=== PATIENT | male | born 1965 | race Hispanic/Latino ===

== ENCOUNTER 2017-02-25 12:50 | Emergency (ER) | payer MEDICARE, MEDICAID ==
[2017-02-25 13:16] LABS: #Basophils 0.1 thou/uL (0.0-0.2); #Lymphocytes 1.5 thou/uL (1.20-3.40); #Monocytes 0.6 thou/uL (0.11-0.59); %Basophils 1.1 % (0.0-1.0); %Eosinophils 0.3 % (0.0-10.0); %Monocytes 5.6 % (0.0-10.0); Hematocrit 49.7 % (42.0-52.0); Mean Platelet Volume 7.1 fL (7.4-10.4); Red Blood Cell (RBC) Count 4.98 mill/uL (4.70-6.10); White Blood Cell (WBC) Count 10.3 thou/uL (4.8-10.8)
[2017-02-25 13:30] LABS: Bilirubin Negative (Negative); Blood, Urine Negative (Negative); Glucose, Urine (Dipstick) Negative (Negative); Ketone, Urine Negative (Negative); Nitrite Negative (Negative); Protein, Urine (Dipstick) Negative (Neg-Trace); Urobilinogen 0.2 mg/dL (0.2-1.0)
[2017-02-25 13:46] LABS: ALT (SGPT) 13 U/L (8-55); AST (SGOT) 19 U/L (5-34); Alkaline Phosphatase 68 U/L (40-150); Anion Gap 12 mmol/L (10-20); BUN (Urea Nitrogen) 13 mg/dL (8.9-20.6); Bilirubin, Total 1.2 mg/dL (0.2-1.2); Calc. Creatinine Clearance 0 mL/min (70-130); Calcium 9.5 mg/dL (7.8-10.44); Carbon Dioxide 25 mmol/L (22-29); Chloride 101 mmol/L (98-107); Estimated GFR-MDRD Greater than 90; Globulin 2.7 g/dL (2.4-3.5); Lipase 19 U/L (8-78); Protein, Total 7.1 g/dL (6.0-8.3)
== END 2017-02-25 16:08 | disposition home or self-care (01) ==
LOC: ERS 12:50
DX: R53.83 Other fatigue (principal); K21.9 Gastro-esophageal reflux disease without esophagitis; N40.0 Benign prostatic hyperplasia without lower urinary tract symptoms; I10 Essential (primary) hypertension; E78.00 Pure hypercholesterolemia, unspecified; M19.90 Unspecified osteoarthritis, unspecified site; F17.210 Nicotine dependence, cigarettes, uncomplicated
CPT/HCPCS: 36415; 80053; 81003; 83690; 85025; 99284

== ENCOUNTER 2017-04-07 10:58 | Outpatient (CLI) | payer MEDICARE, MEDICAID | END 2017-04-07 10:59 | disposition home or self-care (01) | LOC: BICRAD 10:58 | PROVIDERS: ATTEND Family Medicine | DX: M25.532 Pain in left wrist (principal); M25.531 Pain in right wrist; M19.032 Primary osteoarthritis, left wrist; M19.031 Primary osteoarthritis, right wrist; Z98.1 Arthrodesis status ==

== ENCOUNTER 2017-06-13 08:03 | Outpatient (CLI) | payer MEDICARE, MEDICAID ==
[2017-06-13 09:19] LABS: Hemoglobin 15.3 g/dL (14.0-18.0); Mean Corpuscular HGB CONC 33.7 g/dL (32.0-36.0); Mean Corpuscular Hemoglobin 33.3 pg (27.0-31.0); Mean Corpuscular Volume 98.6 fl (80.0-94.0); Mean Platelet Volume 8.5 fL (7.4-10.4); Platelet Count 155 thou/uL (130-400); RBC Distribution Width 12.4 % (11.5-14.5); Red Blood Cell (RBC) Count 4.61 mill/uL (4.70-6.10); White Blood Cell (WBC) Count 13.4 thou/uL (4.8-10.8)
--- NOTE | 2017-06-13 09:23 | RAD ---
PA AND LATERAL CHEST XRAY: DATE: 06/13/17. HISTORY: Preoperative evaluation. FINDINGS: Cardiac silhouette and pulmonary vasculature are within normal limits. Lungs are clear. Osseous str uctures are intact. IMPRESSION: No acute cardiopulmonary process. POS: [facility]
[2017-06-13 09:44] LABS: Anion Gap 13 mmol/L (10-20); BUN (Urea Nitrogen) 15 mg/dL (8.9-20.6); Calc. Creatinine Clearance 0 mL/min (70-130); Calcium 9.4 mg/dL (7.8-10.44); Carbon Dioxide 23 mmol/L (22-29); Chloride 106 mmol/L (98-107); Estimated GFR-MDRD Greater than 90; Glucose 135 mg/dL (70-105); Potassium 4.2 mmol/L (3.5-5.1); Sodium 138 mmol/L (136-145)
--- NOTE | 2017-08-17 08:33 | EKG ---
Test Reason : Blood Pressure : / mmHG Vent. Rate : 051 BPM Atrial Rate : 051 BPM P-R Int : 158 ms QRS Dur : 100 ms QT Int : 420 ms P-R-T Axes : 054 057 036 degrees QTc Int : 387 ms Sinus bradycardia Moderate voltage criteria for LVH, may be normal variant Early repolarization Borderline ECG When compared with ECG of 25-OCT-2016 13:35, (Unconfirmed) Vent. rate has decreased BY 39 BPM Confirmed by RAMSEY CHACKO MD ([id number]) on 08/17/2017 8:32:41 AM Referred By: SARA Confirmed By:RAMSEY CHACKO MD
== END 2017-06-13 08:04 | disposition home or self-care (01) ==
LOC: LABBT 08:03
PROVIDERS: ATTEND Orthopaedic Surgery Hand Surgery
DX: Z01.818 Encounter for other preprocedural examination (principal); G56.21 Lesion of ulnar nerve, right upper limb; M20.091 Other deformity of right finger(s)
CPT/HCPCS: 71046; 80048; 85027; 93005; 93010

== ENCOUNTER 2017-06-27 12:12 | Day surgery (SDC) | payer MEDICARE, MEDICAID ==
[2017-06-13 08:22] VITALS: BMI 24.0
[~2017-06-27 12:12] MED LIST: Ketorolac Tromethamine 30 MG/ML VIAL ONE; Lidocaine 1% PF 5 ML VIAL ONE; Ondansetron HCl/PF 4 MG/2 ML Vial ONE; PHENYLEPHRINE-NS 100 MCG/ML 10 ML SYRINGE ONE; PROPOFOL 200 MG/20 ML VIAL ONE; ePHEDrine/0.9% NaCl/PF SYRINGE 50 mg/10 ml ONE
[2017-06-27 13:16] LABS: #Eosinphils 0.1 thou/uL (0.0-0.7); #Lymphocytes 1.8 thou/uL (1.20-3.40); #Monocytes 0.5 thou/uL (0.11-0.59); #Neutrophils 6.1 thou/uL (1.40-6.50); %Basophils 0.6 % (0.0-1.0); %Eosinophils 0.8 % (0.0-10.0); %Lymphocytes 20.9 % (21.0-51.0); %Monocytes 5.4 % (0.0-10.0); %Neutrophils 72.4 % (42.0-75.0); Hemoglobin 14.4 g/dL (14.0-18.0); Mean Corpuscular HGB CONC 33.9 g/dL (32.0-36.0); Mean Corpuscular Hemoglobin 32.9 pg (27.0-31.0); Mean Corpuscular Volume 97.2 fl (80.0-94.0); Mean Platelet Volume 7.1 fL (7.4-10.4); Platelet Count 146 thou/uL (130-400); RBC Distribution Width 12.5 % (11.5-14.5); Red Blood Cell (RBC) Count 4.36 mill/uL (4.70-6.10); White Blood Cell (WBC) Count 8.4 thou/uL (4.8-10.8)
[2017-06-27] MEDS ORDERED: Fentanyl 250 MCG/5 ML VIAL ONE ×2 (14:34→16:36)
[2017-06-27] MEDS ORDERED: CEFAZOLIN/Water 2 GM/20 ML SYRINGE ONE (14:51)
[2017-06-27] MEDS ORDERED: Betamet Acet/Betamet Na Ph 30 MG/5 ML VIAL ONE (15:40)
[2017-06-27] MEDS ORDERED: Bupivacaine 0.5% 10 ML VIAL ONE (16:48)
[2017-06-27] MEDS ORDERED: Ketorolac Tromethamine 30 MG/ML VIAL ONE (17:02)
[2017-06-27] MEDS ORDERED: HYDROcodone/Acetaminophen 5/325 mg Tablet ONE (18:44)
--- NOTE | 2017-06-27 22:05 | RAD ---
FOUR INTRAOPERATIVE FLUOROSCOPIC IMAGES OF THE RIGHT WRIST 06/27/17 HISTORY: Removal of screws. COMPARISON: 02/10/12. FINDINGS/IMPRESSION: Prior plain film evaluation of 2011 did not demonstrate metallic hardware. Provided fluoroscopic imag es on current study demonstrate metallic plates and multiple screws transfixing the carpal bones. Cor relation with intraoperative findings is recommended. 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 POS: [facility]
--- NOTE | 2017-07-01 08:52 | OP ---
DATE OF PROCEDURE: 06/27/2017 PREOPERATIVE DIAGNOSES: Radial carpal synovitis/radial lunate chondritis, 3-4 mm hole in the lunate with radial lunate joint chondromalacia, tight transcarpal ligament and solid fusion made with four-c orner arthrodesis. PROCEDURES PERFORMED: 1. Removal of 3-4 mm prominent capitate -lunate screw involving now the radial lunate joint. 2. Arthroscopic synovectomy wrist. 3. Arthroscopic chondroplasty radius articular surface and the lunate articular surface. 4. Carpal tunnel release, right. 5. C-arm supervision. FINDINGS: Tight transcarpal ligament synovitis radiocarpal area for exostosis of the capitate third metacarpal junction requiring marked work to retrieve the screw because it began intra-articular sten t on the dorsal rim. DESCRIPTION OF PROCEDURE: After successful general endotracheal anesthesia, limb was prepped and adis ped. The patient then had the C-arm brought into the field, identified the screw, and then outlined the incision for removal of the screw as well as the portals for the arthroscopy as well as transcarp al ligament approach for radial carpal tunnel release. We then exsanguinated the limb, inflated tour niquet to 250 mmHg and gave equal amounts of Marcaine, total of 15 mL in each of the incision areas a nd then began the volar approach to the transcarpal ligament and median nerve. Carried through skin and subcutaneous tissue with the distal end being proximally and 5 mm from volar wrist flexion crease distally and in line with the ring finger. We carried this through the skin and subcutaneous tissue to identify the transcarpal ligament and median nerve released it, protecting the nerve while across and then leaving enough tissue to help with. The patient then had the transcarpal ligament re leased from mid portion distally, had a type 1 takeoff of the nerve and this was spared. The patient then had the transcarpal ligament released with Mccreary blade combination with the tenotomy sci ssors from the mid portion proximally and there was no evidence of tenosynovitis at this point. Placed Celestone in this wound and then closed it with 4-0 nylon. The patient then had a small incis ion made over the lunate metacarpal head in line with the screw head. It was seen to be entering the capitate. There was a large exostosis seen here using part of the previous incision, carried throug h skin and subcutaneous tissue, removed and retracted back the retinaculum and the extensor tendons. Then, we saw exostosis over the capitate proximally and the base of the third metacarpal dorsally, w hich was excised and then this allowed us with the joint arthrotomy to visualize the screw. We maxim ally palmar flexed the wrist and were able to reach an interval that allow removal of the long screw. Once the screw was removed, we then closed this wound with a simple 4-0 nylon mattress pattern and then placed the patient in finger traps using the [place] and [employer] wrist arthroscopy santana system. We had excellent position without undue tension. We then placed 5 mL of normal saline after placing them in finger traps with 10 pounds of traction in the radiocarpal joint. We moved this, we made a s mall hole in line with the Jania's tubercle and the scaphoid. There were no other abnormalities see n with the arthroscope except for marked synovitis. We had performed a complete synovectomy visualiz ation including the radial, carpal, which is now is the capital radius and the mid carpal joint could be seen around the stephany as well as the capitate because of loss of the scaphoid. Total synovectomy was accomplished using multiple portals. We then able to see there was a chondral defect in the radi us approximately 10 mm in size over the radial fossa and some over the palmar aspect of the lunate fo ssa. There also was a chondral defect where the hole had been, and we trimmed this, which was type 3 at this point, to a stable rim. We removed all scope after the synovectomy completed in all sides. No TFCC tear was seen. No abnormality was seen. The fusion was solid at that point, we could visualize. The screw was now out, we removed the arthroscope, closed the joint with a 4-0 nylon simple pattern, injected the joint and all the incision with the remainder of a total of 10 mL 0.5% Marcaine with epi nephrine divided evenly, placed him in a soft dressing and the patient left the operating room withou t evidence of anesthetic or operative complication.
== END 2017-06-27 19:30 | disposition home or self-care (01) ==
LOC: SDC 12:12
PROVIDERS: ATTEND Orthopaedic Surgery Hand Surgery
PROC: 01N50ZZ Release Median Nerve, Open Approach (ICD-10-PCS; principal; 2017-06-27)
PROC: 0PPM04Z Removal of Internal Fixation Device from Right Carpal, Open Approach (ICD-10-PCS; 2017-06-27)
PROC: 0RBN4ZZ Excision of Right Wrist Joint, Percutaneous Endoscopic Approach (ICD-10-PCS; 2017-06-27)
DX: G56.03 Carpal tunnel syndrome, bilateral upper limbs (principal); M89.9 Disorder of bone, unspecified; M24.131 Other articular cartilage disorders, right wrist; M65.9 Synovitis and tenosynovitis, unspecified; T84.89XA Other specified complication of internal orthopedic prosthetic devices, implants and grafts, initial encounter; G56.23 Lesion of ulnar nerve, bilateral upper limbs; M24.50 Contracture, unspecified joint; S64.01XA Injury of ulnar nerve at wrist and hand level of right arm, initial encounter; F17.200 Nicotine dependence, unspecified, uncomplicated; Z79.899 Other long term (current) drug therapy; Z98.890 Other specified postprocedural states
CPT/HCPCS: 36415; 76001; 85025; 96372; 96374; J0702; J1885; J2001; J2270; J2405; J2704; J3010; J3490

== ENCOUNTER 2017-10-26 11:20 | Observation (INO) | payer MEDICARE, MEDICAID ==
[2017-10-26] MEDS ORDERED: Ketorolac Tromethamine 60 MG/2 ML VIAL ONE (11:47)
[2017-10-26] MEDS ORDERED: Fentanyl 100 MCG/2 ML VIAL ONE (11:47)
[2017-10-26 13:02] LABS: #Eosinphils 0.1 thou/uL (0.0-0.7); #Lymphocytes 1.5 thou/uL (1.20-3.40); #Monocytes 0.4 thou/uL (0.11-0.59); %Basophils 0.2 % (0.0-1.0); %Eosinophils 1.1 % (0.0-10.0); %Lymphocytes 16.7 % (21.0-51.0); %Monocytes 4.4 % (0.0-10.0); %Neutrophils 77.6 % (42.0-75.0); Hemoglobin 14.7 g/dL (14.0-18.0); Mean Corpuscular HGB CONC 34.7 g/dL (32.0-36.0); Mean Corpuscular Hemoglobin 33.3 pg (27.0-31.0); Mean Corpuscular Volume 96.1 fL (78.0-98.0); Mean Platelet Volume 7.4 fL (7.4-10.4); Platelet Count 141 thou/uL (130-400); RBC Distribution Width 11.5 % (11.5-14.5); Red Blood Cell (RBC) Count 4.42 mill/uL (4.70-6.10)
[2017-10-26 13:11] LABS: Anion Gap 10 mmol/L (10-20); BUN (Urea Nitrogen) 15 mg/dL (8.9-20.6); Calc. Creatinine Clearance 0 mL/min (70-130); Carbon Dioxide 27 mmol/L (22-29); Chloride 103 mmol/L (98-107); Estimated GFR-MDRD 83; Glucose 103 mg/dL (70-105); Lipase 11 U/L (8-78); Potassium 4.2 mmol/L (3.5-5.1); Sodium 136 mmol/L (136-145)
[2017-10-26] MEDS ORDERED: ISOVUE-370 76%-LOCM 1 ML ONE (13:32)
--- NOTE | 2017-10-26 13:43 | RAD ---
LUMBAR SPINE 3 VIEWS: Date: 10/26/17 HISTORY: Low back pain. FINDINGS: Lumbar vertebra maintain normal height and alignment. The disc spaces are preserved. Mild degenerativ e osteophytes are seen. No evidence of spondylolisthesis. IMPRESSION: Mild degenerative changes lumbar spine. POS: [facility]
[2017-10-26 15:05] LABS: Bilirubin Negative (Negative); Blood, Urine Negative (Negative); Clarity CLEAR (Clear); Glucose, Urine (Dipstick) Negative (Negative); Leukocyte Negative (Negative); Nitrite Negative (Negative); Protein, Urine (Dipstick) Negative (Neg-Trace)
[2017-10-26 15:05] LABS: ALT (SGPT) 11 U/L (8-55); AST (SGOT) 14 U/L (5-34); Albumin 4.1 g/dL (3.5-5.0); Alkaline Phosphatase 58 U/L (40-150); Anion Gap 11 mmol/L (10-20); BUN (Urea Nitrogen) 15 mg/dL (8.9-20.6); Bilirubin, Total 1.1 mg/dL (0.2-1.2); CK (CPK) 191 U/L (30-200); Calc. Creatinine Clearance 0 mL/min (70-130); Calcium 9.2 mg/dL (7.8-10.44); Carbon Dioxide 26 mmol/L (22-29); Chloride 102 mmol/L (98-107); Estimated GFR-MDRD 83; Globulin 2.4 g/dL (2.4-3.5); Glucose 121 mg/dL (70-105); Potassium 4.3 mmol/L (3.5-5.1); Protein, Total 6.5 g/dL (6.0-8.3); Sodium 135 mmol/L (136-145)
[2017-10-26 15:07] LABS: CKMB 1.9 ng/mL (0-6.6); Troponin I Less than 0.010 ng/mL (< 0.028)
--- NOTE | 2017-10-26 15:09 | CT ---
CT ABDOMEN AND PELVIS WITH IV CONTRAST: Date: 10/26/17 Multiple axial tomograms obtained through abdomen and pelvis with IV enhancement. INDICATION: Abdominal pain. Low back pain. No comparison exams. FINDINGS: Images through the lung bases show no infiltrate. There are chronic lung changes. Small nodular densi ties in the left lung base measure up to 5.0 mm. Consider elective follow-up chest CT. There are several low attenuation lesions in the liver with the largest measuring 1.3 cm adjacent to the gallbladder fossa. The densities would suggest benign hepatic cysts. There are numerous low density lesions in the spleen. These lesions are indeterminate by density. The largest measures 2.3 cm with Hounsfield units recorded at 82. Septic emboli to the spleen is a consi deration. Pancreas unremarkable. Adrenal glands normal. There are renal cystic lesions, with the largest in the superior right kidney measuring 2.4 cm. However, there is a complex renal lesion in the lateral right renal cortex measuring up to 1.6 cm in the axial plane. This lesion shows evidence of internal enhancement and makes this a complex suspicio us lesion. No evidence of hydronephrosis. Urinary bladder is unremarkable. Aorta is normal caliber. Small bowel loops appear normal, Appendix appears normal. Colon unremarkable. IMPRESSION: 1. There are numerous indeterminate low density lesions in the spleen which are too numerous to coun t. Septic emboli to the spleen cannot be excluded. Recommend clinical correlation regarding sepsis. 2. There is a complex suspicious enhancing lesion in the right renal cortex measuring 1.6 cm. Neopla sm is the diagnosis of exclusion. 3. Two or three small hepatic cystic lesions. 4. There are other benign-appearing renal cystic lesions. 5. Tiny nodular densities in the left lung base. Recommend elective chest CT. CODE LN. POS: [facility]
[2017-10-26 15:10] LABS: Specific Gravity, Urine 1.049 (1.002-1.036)
--- NOTE | 2017-10-26 15:59 | RAD ---
PORTABLE CHEST: HISTORY: Chest pain. COMPARISON: 06/13/2017 FINDINGS: The lungs are clear. The heart and mediastinum are unremarkable. Irregularity of the posterior lower right ribs may represent old rib fractures. IMPRESSION: No acute abnormality. POS: [facility]
[2017-10-26] MEDS ORDERED: Acetaminophen 325 MG TAB PO PRN (17:11)
[2017-10-26] MEDS ORDERED: Ondansetron HCl/PF 4 MG/2 ML Vial IVP PRN (17:11)
[2017-10-26] MEDS ORDERED: Ondansetron ODT 4 MG TAB PO PRN (17:11)
[2017-10-26 17:22] VITALS: BMI 25.7
[2017-10-26 18:12] LABS: Bilirubin Negative (Negative); Blood, Urine Negative (Negative); Clarity CLEAR (Clear); Glucose, Urine (Dipstick) Negative (Negative); Leukocyte Negative (Negative); Nitrite Negative (Negative); Protein, Urine (Dipstick) Negative (Neg-Trace); Specific Gravity, Urine 1.042 (1.002-1.036); pH, Urine 6.5 (5.0-9.0)
[2017-10-26 18:15] LABS: Bacteria/HPF None Seen HPF (None Seen); Hyaline Casts/LPF 0-3 HYALINE CAST LPF (0-3 Hyaline); RBC/HPF 0-3 HPF (0-3); Squamous Epithelial None Seen HPF (0-3); WBC/HPF None Seen HPF (0-3)
[2017-10-26] MEDS: Famotidine 20 MG TAB PO SCH (19:22)
[2017-10-26] MEDS: HYDROcodone/Acetaminophen 10/325 mg Tablet PO PRN (19:22)
--- NOTE | 2017-10-26 19:30 | PDOC.EVN ---
Attending Addendum - Attending Addendum Date/Time: 10/26/171923 I personally evaluated the patient and discussed the management with Dr. Chaparro/ Madyson I agree with the History, Examination, Assessment and Plan documented see Resident Hx and PE for details with any addition or exceptions noted below. 52 yo male presented to ER with new onset LBP s/p heavy lifting of window patient found with right complex renal mass and splenic questionable emboli. Patient will be placed observation Urology consultation and expectant management for S/ S of septicemia, blood and urine cultures, screening TT echocardiogram rec withhold antibiotic and follow. Regard LBP no weakness to LE, no loss bowel or bladder control patient does endorse HX BPH however. Patient with questionable nightsweats.
--- NOTE | 2017-10-26 20:29 | PDOC.EVN ---
Attending Addendum - Attending Addendum Date/Time: 10/26/171920 I personally evaluated the patient and discussed the management with Dr. [] I agree with the History, Examination, Assessment and Plan documented above with any addition or exceptions noted below.
--- NOTE | 2017-10-26 20:38 | PDOC.FPRHP ---
- History of Present Illness Chief Complaint: back pain History of Present Illness: Pt is a 52 yo M presented to the ED with intractable bacl pain. He reports pain has been episodic but quickly resolved in the past for "a while;" however, pain recently became more persistent this week at which point he went to his PCPs office who prescribed the pt a mm relaxer w/o much relief of symptoms. He takes norco chronically for his b/l severe osteoarthritis and reports some relief of pain with norco. He denies urinary symptoms or any other associated symptoms for that matter. When the pt arrived to the ED there was concern for AAA so an abdominal CT was performed which showed a renal mass approx 1.6 cm, numerous splenic hypodensities and liver and renal cysts. There was concern that the splenic lesions could possibly respresent septic emboli and the pt was admitted for further evaluation and observation. He denies fever, chills, NVDC, cp, sob. Does report occasional night sweats but denies recent unintentional weight loss. ED Course: Morphine, fentanyl, toradol - Allergies/Adverse Reactions Allergies Allergy/AdvReac Type Severity Reaction Status Date / Time No Known Allergies Allergy Verified 06/13/17 08:22 - Home Medications Medication Instructions Recorded Confirmed Type Atenolol [Tenormin] 50 mg PO DAILY 06/13/17 10/26/17 History HYDROcodone Bit/APAP 7.5/325 1 tab PO Q6HR PRN 06/13/17 10/26/17 History [[place] 7.5/325] Pantoprazole [Protonix] 40 mg PO DAILY 06/13/17 10/26/17 History Terazosin HCl 10 mg PO DAILY 06/13/17 10/26/17 History Verapamil HCl [Verapamil ER] 240 mg PO DAILY 06/13/17 10/26/17 History - History PMHx: HLD, OA b/l wrists, chronic pain PSHx: b/l wrist surgery numerous FHx: DM, HTN paternal and maternal Social: 50 pack year history, 1 pint of liquor every weekend alcohol intake, and occasional marijuana use - Review of Systems General: reports: night sweats. denies: fever/chills, weight/appetite/sleep changes, fatigue Eyes: denies: eye pain, vision changes ENT: denies: nasal congestion, rhinorrhea Respiratory: denies: cough, congestion, shortness of breath, exercise intolerance Cardiovascular: denies: chest pain, palpitation, edema, paroxysmal nocturnal dyspnea Gastrointestinal: denies: nausea, vomiting, diarrhea, constipation, abdominal pain Skin: denies: rashes, lesions Musculoskeletal: reports: pain, stiffness. denies: tenderness Neurological: denies: numbness, syncope, weakness - Vital signs BP: 132/69 HR: 50 RR: 16 Tmax: 98.1 Pox: 96% on RA Wt: 68Kg - Physical Exam Constitutional: NAD, awake, alert and oriented, well developed HEENT: normocephalic and atraumatic, PERRLA, EOMI, grossly normal vision, grossly normal hearing -HEENT: conjunctival injection b/l Neck: trachea midline, no LAD, no JVD Chest: no-tender to palpation, no lesions Heart: RRR, normal S1/S2, no murmurs/rubs/gallops, pulses present, no edema Lungs: CTAB, no respiratory distress, good air movement, no rales/rhonchi Abdomen: soft, non-tender, bowel sounds present, no masses/distention Musculoskeletal: normal structure, normal tone Neurological: no focal deficit, normal sensation Skin: no rash/lesions, good turgor, capillary refill <2 seconds Heme/Lymphatic: no unusual bruising or bleeding, no petechia Psychiatric: normal mood and affect FMR H&P: Results - Labs Result Diagrams: 10/27/17 04:07 10/27/17 04:07 Lab results: WBC 9.0 thou/uL (4.8-10.8) 10/26/17 12:47 Hgb 14.7 g/dL (14.0-18.0) 10/26/17 12:47 Hct 42.5 % (42.0-52.0) 10/26/17 12:47 MCV 96.1 fL (78.0-98.0) 10/26/17 12:47 Plt Count 141 thou/uL (130-400) 10/26/17 12:47 Neutrophils % 77.6 % (42.0-75.0) H 10/26/17 12:47 Sodium 135 mmol/L (136-145) L 10/26/17 14:29 Potassium 4.3 mmol/L (3.5-5.1) 10/26/17 14:29 Chloride 102 mmol/L (98-107) 10/26/17 14:29 Carbon Dioxide 26 mmol/L (22-29) 10/26/17 14:29 BUN 15 mg/dL (8.9-20.6) 10/26/17 14:29 Creatinine 0.96 mg/dL (0.6-1.3) 10/26/17 14:29 Glucose 121 mg/dL (70-105) H 10/26/17 14:29 Lactic Acid 0.8 mmol/L (0.5-2.2) 10/26/17 14:29 Calcium 9.2 mg/dL (7.8-10.44) 10/26/17 14:29 Total Bilirubin 1.1 mg/dL (0.2-1.2) 10/26/17 14:29 AST 14 U/L (5-34) 10/26/17 14:29 ALT 11 U/L (8-55) 10/26/17 14:29 Alkaline Phosphatase 58 U/L (40-150) 10/26/17 14:29 Creatine Kinase 191 U/L (30-200) 10/26/17 14:29 CK-MB (CK-2) 1.9 ng/mL (0-6.6) 10/26/17 14:29 Serum Total Protein 6.5 g/dL (6.0-8.3) 10/26/17 14:29 Albumin 4.1 g/dL (3.5-5.0) 10/26/17 14:29 Lipase 11 U/L (8-78) 10/26/17 12:47 Urine Ketones Negative mg/dL (Negative) 10/26/17 14:57 Urine Blood Negative (Negative) 10/26/17 14:57 Urine Nitrite Negative (Negative) 10/26/17 14:57 Ur Leukocyte Esterase Negative (Negative) 10/26/17 14:57 Urine RBC 0-3 HPF (0-3) 10/26/17 14:57 Urine WBC None Seen HPF (0-3) 10/26/17 14:57 Ur Squamous Epith Cells None Seen HPF (0-3) 10/26/17 14:57 Urine Bacteria None Seen HPF (None Seen) 10/26/17 14:57 - EKG Interpretation EKG: sinus bradycardia - Radiology Interpretation Chest x-ray Status: report reviewed by me (NAD) CT scan - abdomen Status: image reviewed by me, report reviewed by me (renal mass 1.6 cm, renal cysts, splenic hypodensities concerning for septic emboli, liver cysts) FMR H&P: A/P - Problem List (1) Renal mass Current Visit: Yes Status: Acute Code(s): N28.89 - OTHER SPECIFIED DISORDERS OF KIDNEY AND URETER (2) Endocarditis Current Visit: Yes Status: Acute Code(s): I38 - ENDOCARDITIS, VALVE UNSPECIFIED (3) HLD (hyperlipidemia) Current Visit: Yes Status: Acute Code(s): E78.5 - HYPERLIPIDEMIA, UNSPECIFIED - Plan 1) Renal mass: -will need further OP workup - check UA w/ microscopy and urine culture - consider IP perc renal bx - pain control 2) Endocarditis: - suspect given ct findings - no appreciable murmur on exam although heart sounds were distant - will check echo in am and f/u accordingly - differential includes septic emboli vs metastatic disease of unknown primary - if pt spikes fever will recheck blood cx - admit to tele obs 3) HLD: -home meds 4) PPX: -lovenox and pepcid for dvt and GI ppx resepctively 5) Code status: - pt wishes to be full code, discussed with pt at bedside. Disposition/LOS: stable, </= 2 days FMR H&P: Upper Level - Pertinent history Patient is a 52 year old male who presents to the ED with a chief complaint of left-sided back pain. Patient has history of chronic bilateral wrist pain for which he takes [place]. Back pain has been unresponsive to [place]. His back pain has been present for the last several months and typically has been intermitttent in nature, but has been constant over the past week. - Pertinent findings Physical Exam: General: Alert and oriented; no apparent distress Heart: regular rate and rhythm; no murmurs, rubs, or gallops Lungs:clear to auscultation bilaterally Abdomen: soft, non-tender no distention; no masses or organomegaly Musculoskeletal: full range of motion of back; non-tender to palpation CT abdomen/pelvis: numerous low density lesions in spleen; suspicious enhancing lesion of R. renal cortex of 1.6 cm. - Plan Date/Time: 10/26/172032 I, Chhaya Chaparro, have evaluated this patient and agree with findings/plan as outlined by international accounting manager resident. Pertinent changes/additions are listed here. 1. Intractable back pain - will resume pt's home [place]. - Toradol prn. 2. R. Renal mass - possibly malignant. - will consider urological consult in the morning for further evaluation. 3. Splenic lesions - possibly related to malignancy vs. septic emboli. - will obtain Echo - patient afebrile currently, however if he becomes febrile, we will obtain repeat cultures and begin broad-spectrum antibiotics. 4. Hyperlipidemia - resume home medications. Attending Addendum - Attending Addendum Date/Time: 10/27/17 [id number] I personally evaluated the patient and discussed the management with Dr. Coughlin I agree with the History, Examination, Assessment and Plan documented above with any addition or exceptions noted below.
[2017-10-26] MEDS ORDERED: Famotidine/PF 20 mg/2ml Vial SLOW IVP SCH (21:00)
[2017-10-27] MEDS: HYDROcodone/Acetaminophen 10/325 mg Tablet PO PRN ×4 (00:10→12:35)
[2017-10-27 04:43] LABS: #Basophils 0.1 thou/uL (0.0-0.2); #Eosinphils 0.1 thou/uL (0.0-0.7); #Lymphocytes 2.6 thou/uL (1.20-3.40); #Monocytes 0.4 thou/uL (0.11-0.59); #Neutrophils 4.4 thou/uL (1.40-6.50); %Basophils 1.5 % (0.0-1.0); %Eosinophils 1.6 % (0.0-10.0); %Lymphocytes 33.6 % (21.0-51.0); %Monocytes 5.1 % (0.0-10.0); %Neutrophils 58.2 % (42.0-75.0); Mean Corpuscular HGB CONC 34.5 g/dL (32.0-36.0); Mean Corpuscular Hemoglobin 33.3 pg (27.0-31.0); Mean Corpuscular Volume 96.5 fL (78.0-98.0); Mean Platelet Volume 7.6 fL (7.4-10.4); Platelet Count 146 thou/uL (130-400); RBC Distribution Width 11.5 % (11.5-14.5); White Blood Cell (WBC) Count 7.6 thou/uL (4.8-10.8)
[2017-10-27 04:54] LABS: ALT (SGPT) 11 U/L (8-55); AST (SGOT) 16 U/L (5-34); Albumin 3.7 g/dL (3.5-5.0); Alkaline Phosphatase 70 U/L (40-150); Anion Gap 10 mmol/L (10-20); BUN (Urea Nitrogen) 15 mg/dL (8.9-20.6); Bilirubin, Total 0.5 mg/dL (0.2-1.2); Calc. Creatinine Clearance 84 mL/min (70-130); Calcium 8.7 mg/dL (7.8-10.44); Carbon Dioxide 27 mmol/L (22-29); Chloride 105 mmol/L (98-107); Estimated GFR-MDRD 78; Globulin 2.2 g/dL (2.4-3.5); Glucose 96 mg/dL (70-105); Potassium 4.1 mmol/L (3.5-5.1); Protein, Total 5.9 g/dL (6.0-8.3); Sodium 138 mmol/L (136-145)
--- NOTE | 2017-10-27 05:18 | PDOC.FM ---
- Subjective Subjective: R sided low back pain continues, causing difficulty sleeping, reports night sweats overnight, increased frequency and burning with urination. He denies headaches, SOB, chest pain, abdominal pain, N/V/D, msk weakness. - Objective Vital Signs & Weight: Vital Signs (12 hours) Temp Pulse Resp BP BP Pulse Ox 10/27/17 03:23 97.6 F 56 L 18 139/66 95 10/27/17 00:00 98.0 F 57 L 18 144/70 H 94 L 10/26/17 20:00 98.1 F 50 L 16 132/69 96 10/26/17 19:20 98.1 F 54 L 20 10/26/17 19:00 98.1 F 54 L 20 131/78 97 I&O: 10/25/17 10/26/17 10/27/17 06:59 06:59 06:59 Intake Total 700 Balance 700 Result Diagrams: 10/27/17 04:07 10/27/17 04:07 <Kalyan Farah - Last Filed: 10/27/17 13:23> - Objective Vital Signs & Weight: Vital Signs (12 hours) Temp Pulse Resp BP Pulse Ox 10/27/17 15:04 98.1 F 55 L 16 109/59 L 92 L 10/27/17 11:19 98.0 F 55 L 20 149/70 H 94 L 10/27/17 08:00 98.1 F 61 20 10/27/17 07:20 98.1 F 61 20 150/63 H 95 I&O: 10/26/17 10/27/17 10/28/17 06:59 06:59 06:59 Intake Total 940 Balance 940 Result Diagrams: 10/27/17 04:07 10/27/17 04:07 <Marcella Lance - Last Filed: 10/27/17 17:27> Phys Exam - Physical Examination Neck: no nodes Respiratory: no wheezing, no rales, no rhonchi, wheezing present, clear to auscultation bilateral Cardiovascular: RRR, no significant murmur (distant heart sounds ), no rub, gallop, irregular Gastrointestinal: soft, non-tender, no distention, positive bowel sounds Musculoskeletal: no edema, pulses present Psychiatric: normal affect <Kalyan Farah - Last Filed: 10/27/17 13:23> Dx/Plan (1) Renal mass Code(s): N28.89 - OTHER SPECIFIED DISORDERS OF KIDNEY AND URETER Status: Acute (2) HLD (hyperlipidemia) Code(s): E78.5 - HYPERLIPIDEMIA, UNSPECIFIED Status: Acute - Plan Plan: 1. Intractable back pain - will resume pt's home [place]. - Tylenol prn. 2. R. Renal mass - possibly malignant. - will consider urological consult in the morning for further evaluation. 3. Splenic lesions - possibly related to malignancy vs. septic emboli. - will obtain Echo - patient afebrile currently, however if he becomes febrile, we will obtain repeat cultures and begin broad-spectrum antibiotics. - currently no growth on BC 4. Hyperlipidemia - resume home medications. <Kalyan Farah - Last Filed: 10/27/17 13:23> Attending Addendum - Attending Addendum Date/Time: 10/27/17 1726 I personally evaluated the patient and discussed the management with Dr. Farah. I agree with the History, Examination, Assessment and Plan documented above with any addition or exceptions noted below. The patient has a mass on the kidney. Will consult urology for further recommendations. Check PSA. He is also having point tenderness in pelvis, will get XR. Restarting norco for pain. <Marcella Lance - Last Filed: 10/27/17 17:27>
[2017-10-27] MEDS: Famotidine 20 MG TAB PO SCH (08:36)
[2017-10-27] MEDS ORDERED: Enoxaparin Sodium 40 MG/0.4 ML SYRINGE SC SCH ×2 (09:00)
[2017-10-27] MEDS ORDERED: Atenolol 50 MG TAB PO SCH (09:45)
[2017-10-27] MEDS ORDERED: Terazosin HCl 5 MG CAP PO SCH (09:45)
--- NOTE | 2017-10-27 12:08 | RAD ---
AP PELVIS: HISTORY: Hip pain. Question metastasis. FINDINGS: The bony pelvis appears unremarkable. No evidence of blastic or lytic lesion. No fracture. IMPRESSION: No acute osseous abnormality. POS: [facility]
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
[2017-10-27 15:35] VITALS: BP 109/59; TEMP 98.1
--- NOTE | 2017-10-28 08:23 | DIS-2 ---
DATE OF ADMISSION: 10/26/2017 DATE OF DISCHARGE: 10/27/2017 RESIDENT: Kalyan Farah DO ADMITTING ATTENDING: Dr. Ren Izaguirre. DISCHARGE ATTENDING: Dr. Marcella Lance. CONSULTATION: Dr. Anjelica Pineda, Urology. PROCEDURES: 1. Echocardiogram: EF is visually estimated at 55-60%, normal diastolic function , mildly dilated left atrium, mild to moderate mitral regurgitation, mild tricuspid regurgitation. 2. CT Abdomen: 1. There are numerous intdeterminate low density lesions in the spleen which are too numerous to count. septic emboli to the spleen cannot be excluded. Recommend clinical correlation regarding sepsis. 2. There is a complex suspicious enhancing lesion in the right renal cortex measuring 1.6 cm. Neoplasm is the diagnosis of exclusion. 3. two or three small hepatic cystic lesions. 4. Tiny nodular densities in the left lung base. Recommend elective chest CT. 3. X-ray pelvis: no acute osseous abnormality PRIMARY DIAGNOSIS: 1. unspecified R sided renal mass. SECONDARY DIAGNOSES: 1. Back pain. 2. Hyperlipidemia. DISCHARGE MEDICATIONS: As follows: Pantoprazole 40 mg tab p.o. daily, Terazosin hydrochloride 10 mg capsule p.o. daily, verapamil hydrochloride 240 mg tablet extended release p.o. daily, atenolol 50 mg tab p.o. daily, Newman 10/ 325 mg tab p.o. q.4 hours p.r.n. HISTORY OF PRESENT ILLNESS AND HOSPITAL COURSE: The patient is a 52-year-old male who presented to the ED with intractable back pain. This has been going on for a while now in episodic fashion. The pain was unbearable at this time and he decided to come into the ER. 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 He was admitted for concern that there may be an abdominal aortic aneurysm. An abdominal CT was performed and revealed a renal mass measuring approximately 1.6 cm and numerous splenic hypodensities in the liver and renal cysts. The concern was that these could possibly be septic emboli or primary cancer or metastasis from other cancer. PSA, Calcium and CRP all were negative. Urology was consulted and decided that his condition was stable enough that he could be followed up outpatient. He will be following up with Dr. Pineda in the next 3 months and will be following up with his primary care physician this week. Echocardiogram was unremarkable. DISPOSITION: Stable. DISCHARGE INSTRUCTIONS: 1. Location home. 2. Diet heart healthy, low sodium. 3. Activity as tolerated. 4. Follow up with his PCP Dr. Dodge next week and Dr. Pineda in the next 3 months. ALISE
[2017-10-28] MEDS ORDERED: Atenolol 50 MG TAB PO SCH (09:00)
[2017-10-28] MEDS ORDERED: Terazosin HCl 5 MG CAP PO SCH (09:00)
[2017-10-28] MEDS ORDERED: Non-Formulary Item 1 EACH (Terazosin Hcl [Terazosin Hcl] 10 MG) PO SCH (09:00)
--- NOTE | 2017-11-01 11:46 | EKG ---
Test Reason : Blood Pressure : / mmHG Vent. Rate : 051 BPM Atrial Rate : 051 BPM P-R Int : 186 ms QRS Dur : 098 ms QT Int : 440 ms P-R-T Axes : 057 055 051 degrees QTc Int : 405 ms Sinus bradycardia Minimal voltage criteria for LVH, may be normal variant Early repolarization Borderline ECG Confirmed by LILY BARNHART, CHERYLE ([id number]), editorial project manager REINIER GAY ([id number]) on 11/01/2017 11:46:14 AM Referred By: Confirmed By:CHERYLE BAUTISTA MD
== END 2017-10-27 17:58 | disposition home or self-care (01) ==
LOC: ERS 11:20 → 2SW 16:55
PROVIDERS: ADMIT Family Medicine; ATTEND Family Medicine
DX: N28.89 Other specified disorders of kidney and ureter (principal); K21.9 Gastro-esophageal reflux disease without esophagitis; E78.00 Pure hypercholesterolemia, unspecified; I10 Essential (primary) hypertension; M19.90 Unspecified osteoarthritis, unspecified site; F17.210 Nicotine dependence, cigarettes, uncomplicated; I38 Endocarditis, valve unspecified; Z79.899 Other long term (current) drug therapy
CPT/HCPCS: 71045; 72100; 72170; 74177; 80053 ×2; 81001; 81003; 82550; 82553; 83605; 83690; 84153; 84484; 85025 ×2; 86140; 87040 ×2; 87086; 93005; 93306; 96361; 96372 ×2; 96374; 99285; G0378; 36415; 80048; J1650; J1885; J2270; J3010

== ENCOUNTER 2018-01-20 13:18 | Emergency (ER) | payer MEDICARE, MEDICAID ==
--- NOTE | 2018-01-20 14:29 | RAD ---
RIGHT ANKLE THREE VIEWS: History: Ankle pain. Patient tripped in a hole this weekend. FINDINGS: There are some minimal arthritic changes of the ankle joint without significant joint space narrowing . No evidence of fracture. IMPRESSION: No evidence of fracture. POS: [facility]
== END 2018-01-20 14:30 | disposition home or self-care (01) ==
LOC: ERS 13:18
DX: S93.401A Sprain of unspecified ligament of right ankle, initial encounter (principal); K21.9 Gastro-esophageal reflux disease without esophagitis; M19.90 Unspecified osteoarthritis, unspecified site; I10 Essential (primary) hypertension; F17.210 Nicotine dependence, cigarettes, uncomplicated; W17.2XXA Fall into hole, initial encounter

== ENCOUNTER 2018-01-21 07:29 | Outpatient (CLI) | payer MEDICARE, MEDICAID ==
--- NOTE | 2018-01-21 09:48 | CT ---
PRE AND POSTCONTRAST ENHANCED CT IMAGES ABDOMEN: HISTORY: Followup right renal mass. FINDINGS: Pre- and postcontrast-enhanced CT images abdomen obtained before and after administration of IV contr ast. Again, a 1.6 cm hypodense lesion is seen in the right kidney. This lesion demonstrates definite enha ncement on the contrast-enhanced images with Hounsfield measurements of 76 on the arterial phase and 66 on the delayed venous phase. This compares to precontrast-enhanced Hounsfield measurement of a 16 . The other cysts in the right kidney upper pole do not enhance significantly. I am concerned that this may represent early right renal malignancy. The lesion appears to be stable since the previous CT from approximately 3 months earlier. However, characteristics are concerning for malignancy of th e right kidney. No other significant abnormality is seen. Stable mid pole right renal lesion concer afua for malignancy. POS: [facility]
[2018-01-21] MEDS ORDERED: ISOVUE-370 76%-LOCM 1 ML ONE (14:03)
== END 2018-01-21 07:30 | disposition home or self-care (01) ==
LOC: BICCT 07:29
PROVIDERS: ATTEND Urology
DX: N28.89 Other specified disorders of kidney and ureter (principal)
CPT/HCPCS: 74170

== ENCOUNTER 2018-02-22 13:11 | Emergency (ER) | payer MEDICARE, MEDICAID ==
[~2018-02-22 13:11] MED LIST changes: +ISOVUE-370 76%-LOCM 1 ML ONE; -Ketorolac Tromethamine 30 MG/ML VIAL ONE; -Lidocaine 1% PF 5 ML VIAL ONE; -Ondansetron HCl/PF 4 MG/2 ML Vial ONE; -PHENYLEPHRINE-NS 100 MCG/ML 10 ML SYRINGE ONE; -PROPOFOL 200 MG/20 ML VIAL ONE; -ePHEDrine/0.9% NaCl/PF SYRINGE 50 mg/10 ml ONE
[2018-02-22 13:48] LABS: #Basophils 0.1 thou/uL (0.0-0.2); #Eosinphils 0.1 thou/uL (0.0-0.7); #Lymphocytes 2.1 thou/uL (1.20-3.40); #Monocytes 0.7 thou/uL (0.11-0.59); %Basophils 1.4 % (0.0-1.0); %Eosinophils 0.9 % (0.0-10.0); %Lymphocytes 23.7 % (21.0-51.0); %Monocytes 7.6 % (0.0-10.0); %Neutrophils 66.3 % (42.0-75.0); Hemoglobin 15.2 g/dL (14.0-18.0); Mean Corpuscular HGB CONC 34.6 g/dL (32.0-36.0); Mean Corpuscular Hemoglobin 34.1 pg (27.0-31.0); Mean Corpuscular Volume 98.5 fL (78.0-98.0); Mean Platelet Volume 7.5 fL (7.4-10.4); Platelet Count 164 thou/uL (130-400); RBC Distribution Width 12.1 % (11.5-14.5); Red Blood Cell (RBC) Count 4.46 mill/uL (4.70-6.10)
[2018-02-22] MEDS ORDERED: Pantoprazole 40 MG VIAL ONE (13:52)
[2018-02-22] MEDS ORDERED: Ketorolac Tromethamine 30 MG/ML VIAL ONE (13:52)
[2018-02-22] MEDS ORDERED: Ondansetron PF 4 MG/2 ML Vial ONE (13:52)
[2018-02-22] MEDS ORDERED: Dicyclomine 20 MG TAB ONE (13:52)
[2018-02-22 13:56] LABS: Bilirubin Negative (Negative); Blood, Urine Negative (Negative); Clarity CLEAR (Clear); Glucose, Urine (Dipstick) Negative (Negative); Leukocyte Negative (Negative); Nitrite Negative (Negative); Protein, Urine (Dipstick) Negative (Neg-Trace); Specific Gravity, Urine 1.011 (1.002-1.036); Urobilinogen 0.2 mg/dL (0.2-1.0); pH, Urine 5.5 (5.0-9.0)
[2018-02-22 14:15] LABS: ALT (SGPT) 36 U/L (8-55); AST (SGOT) 26 U/L (5-34); Albumin 4.1 g/dL (3.5-5.0); Alkaline Phosphatase 105 U/L (40-150); Anion Gap 14 mmol/L (10-20); BUN (Urea Nitrogen) 15 mg/dL (8.9-20.6); Bilirubin, Total 0.5 mg/dL (0.2-1.2); Calc. Creatinine Clearance 0 mL/min (70-130); Calcium 9.2 mg/dL (7.8-10.44); Carbon Dioxide 20 mmol/L (22-29); Chloride 108 mmol/L (98-107); Estimated GFR-MDRD 84; Globulin 2.8 g/dL (2.4-3.5); Glucose 117 mg/dL (70-105); Potassium 4.4 mmol/L (3.5-5.1); Protein, Total 6.9 g/dL (6.0-8.3); Sodium 138 mmol/L (136-145)
--- NOTE | 2018-02-22 15:13 | CT ---
CT ABDOMEN AND PELVIS WITH CONTRAST: Date: 02/22/18 Multiple axial tomograms obtained through the abdomen and pelvis with IV enhancement. INDICATION: Back pain. Comparison made to recent CT of 01/21/18. Also, compared to the CT of 10/26/17. FINDINGS: Small low density foci in the liver again seen, stable, probably representing tiny cysts. Numerous low density lesions in the spleen are again noted. These were described previously and appea r stable. Pancreas unremarkable. Adrenal glands unremarkable. There are low density lesions again seen involving the kidney. There is a suspicious enhancing lesion in the lateral right renal cortex suspicious for neoplasm, which has been described on both prior st udies. Bowel loops unremarkable. Bladder unremarkable. No hydronephrosis or urinary tract calculus. Aorta no rmal caliber. No free fluid. Appendix unremarkable. IMPRESSION: No interval change from recent CT scans of abdomen. The hepatic cysts, low density splenic lesions, a nd suspicious right renal lesion are all again noted. POS: [facility]
[2018-02-22] MEDS ORDERED: Acetaminophen/Codeine 30-300mg Tablet ONE (15:49)
== END 2018-02-22 15:58 | disposition home or self-care (01) ==
LOC: ERS 13:11
DX: M54.5 Low back pain (principal); I10 Essential (primary) hypertension; E78.00 Pure hypercholesterolemia, unspecified; M19.90 Unspecified osteoarthritis, unspecified site; F17.210 Nicotine dependence, cigarettes, uncomplicated; K21.9 Gastro-esophageal reflux disease without esophagitis; Z79.899 Other long term (current) drug therapy
CPT/HCPCS: 36415; 74177; 80053; 81003; 83605; 85025; 87086; 96365; 96375; C9113; J1885; J2405

== ENCOUNTER 2018-03-02 11:45 | Outpatient (CLI) | payer MEDICARE, MEDICAID ==
--- NOTE | 2018-03-02 13:45 | RAD ---
LUMBAR SPINE THREE VIEWS: History: Low back pain. Comparison: 10-26-17 FINDINGS: There are five lumbar type vertebrae. Pedicles are intact. Mild leftward convex rotatory scoliotic cu rvature. Vertebral body heights and AP alignment are maintained. Mild to moderate osteophytosis of th e lower vertebral bodies and facets. Calcification throughout the arterial structures. IMPRESSION: 1. Degenerative changes lower lumbar spine and hips. No evidence of compression fracture. 2. Atherosclerosis. POS: [facility]
== END 2018-03-02 11:46 | disposition home or self-care (01) ==
LOC: BICRAD 11:45
PROVIDERS: ATTEND Family Medicine
DX: M54.5 Low back pain (principal); M47.896 Other spondylosis, lumbar region; M16.0 Bilateral primary osteoarthritis of hip; I70.90 Unspecified atherosclerosis
CPT/HCPCS: 72100

== ENCOUNTER 2018-07-21 14:10 | Outpatient (CLI) | payer MEDICARE, MEDICAID ==
--- NOTE | 2018-07-21 15:02 | CT ---
FChest CT without contrast: 07/21/2018 COMPARISON: None available TECHNIQUE: Axial CT imaging at 3 mm intervals from thoracic inlet through upper abdomen without contr ast. Coronal and sagittal reformatted imaging obtained. HISTORY: Evaluate for pulmonary nodule FINDINGS: The lack of contrast media limits assessment of the imaged viscera, the bowel, the vascular structures, and for lymphadenopathy. Postoperative clip is noted anterior to the thyroid gland. Scattered coronary arterial calcification noted. Limited assessment for lymphadenopathy in the chest appears unremarkable. No pleural, pericard ial, or mediastinal fluid is seen. Limited assessment of the upper abdomen demonstrates a few scattered subcentimeter hepatic hypodensit ies, better characterized on prior contrast enhanced CT performed 02/22/2018. That study demonstrated hypodense splenic lesions which cannot be appreciated on this examination secondary to noncontrast e nhanced nature of this examination. No endobronchial lesion is evident on this examination. Nonspecific pulmonary nodule within left upper lobe noted on axial image 34 measuring 4 mm. Left uppe r lobe 4 mm pulmonary nodule noted on axial image 87. 4 mm pulmonary nodule in left upper lobe noted on image 99. Left lower lobe pulmonary nodule measures approximately 7 mm on axial image 114. 4 mm pulmonary nodule within lateral left lower lobe on axial image 108 noted. Additional left lower lobe pulmonary nodule on image 125 measures 5mm. Right lower lobe pulmonary nodule on image 120 measures 6 mm. Right middle lobe pulmonary nodule noted on image 86 measuring 3 mm and 6 mm pulmonary nodule within right middle lobe noted on axial image 93. Review of the osseous structures demonstrates no worrisome lytic or blastic bone lesion. IMPRESSION: Multiple bilateral pulmonary nodules as detailed above, etiology/significance uncertain. No comparison imaging is available. Findings may be related to granulomatous disease or malignancy/me tastatic disease. Recommend follow-up CT examination of the chest in 6 months.
== END 2018-07-21 14:11 | disposition home or self-care (01) ==
LOC: BICCT 14:10
PROVIDERS: ATTEND Family Medicine
DX: R91.8 Other nonspecific abnormal finding of lung field (principal)
CPT/HCPCS: 71250

== ENCOUNTER 2018-08-04 12:25 | Emergency (ER) | payer MEDICARE, MEDICAID ==
[2018-08-04 13:51] LABS: #Eosinphils 0.1 thou/uL (0.0-0.7); #Lymphocytes 1.7 thou/uL (1.20-3.40); #Monocytes 0.6 thou/uL (0.11-0.59); #Neutrophils 7.6 thou/uL (1.40-6.50); %Basophils 0.1 % (0.0-1.0); %Eosinophils 0.7 % (0.0-10.0); %Lymphocytes 17.2 % (21.0-51.0); %Monocytes 5.6 % (0.0-10.0); %Neutrophils 76.4 % (42.0-75.0); Hemoglobin 13.9 g/dL (14.0-18.0); Mean Corpuscular HGB CONC 33.8 g/dL (32.0-36.0); Mean Corpuscular Hemoglobin 32.9 pg (27.0-31.0); Mean Corpuscular Volume 97.4 fL (78.0-98.0); Mean Platelet Volume 7.9 fL (7.4-10.4); Platelet Count 150 thou/uL (130-400); RBC Distribution Width 11.7 % (11.5-14.5); Red Blood Cell (RBC) Count 4.22 mill/uL (4.70-6.10)
[2018-08-04 14:07] LABS: ALT (SGPT) 22 U/L (8-55); AST (SGOT) 18 U/L (5-34); Albumin 4.4 g/dL (3.5-5.0); Alkaline Phosphatase 63 U/L (40-150); Anion Gap 11 mmol/L (10-20); BUN (Urea Nitrogen) 17 mg/dL (8.4-25.7); Bilirubin, Total 1.2 mg/dL (0.2-1.2); Calc. Creatinine Clearance 0 mL/min (70-130); Calcium 9.1 mg/dL (7.8-10.44); Carbon Dioxide 26 mmol/L (22-29); Chloride 105 mmol/L (98-107); Estimated GFR-MDRD 67; Globulin 2.3 g/dL (2.4-3.5); Glucose 117 mg/dL (70-105); Potassium 4.3 mmol/L (3.5-5.1); Protein, Total 6.7 g/dL (6.0-8.3); Sodium 138 mmol/L (136-145)
--- NOTE | 2018-08-04 15:19 | RAD ---
LUMBAR SPINE FOUR VIEWS: History: Right flank pain. FINDINGS: In the AP view there is slight curvature with convexity to the left. Some of this may be positional. This measures approximately 9 degrees. In the lateral view, the lumbar vertebrae maintain normal heig ht with slight anterolisthesis of L5-S1 is noted. Disc spaces are preserved. Mild anterior osteophyte s and mild facet hypertrophy. I cannot exclude posterior spondylolysis of L5-S1. IMPRESSION: There are degenerative changes of the lumbar spine with slight anterolisthesis of L5-S1 and questione d posterior spondylolysis at this level. POS: [facility]
[2018-08-04 15:20] LABS: Bilirubin Small (Negative); Blood, Urine Negative (Negative); Clarity CLEAR (Clear); Glucose, Urine (Dipstick) Negative (Negative); Leukocyte Negative (Negative); Nitrite Negative (Negative); Protein, Urine (Dipstick) Negative (Neg-Trace); Specific Gravity, Urine 1.036 (1.002-1.036); pH, Urine 5.5 (5.0-9.0)
[2018-08-04] MEDS ORDERED: Ketorolac Tromethamine 30 MG/ML VIAL ONE (15:30)
--- NOTE | 2018-08-04 16:06 | CT ---
EXAM: Abdomen and pelvic CT scan without contrast: HISTORY: Right flank pain for one month COMPARISON: 02/22/[address] scan, 07/21/2018 FINDINGS: Small stable bilateral pulmonary nodules. Liver: Small stable liver cysts. Gallbladder:Unremarkable. Pancreas:Unremarkable Spleen:Previously noted spleen hypodensities much less well documented than on prior postcontrast lata dies. Adrenal glands:Unremarkable. Kidneys:No renal calculus or acute obstruction.The previously noted left and right renal cysts are less well demonstrated, the previously noted right upper pole cyst is not definitely seen. No evidence for bowel obstruction. No CT evidence for acute appendicitis. The urinary bladder is unremarkable. No abscess, adenopathy, or abnormal fluid collection within the abdomen or pelvis. IMPRESSION: Small stable bilateral pulmonary nodules. Stable liver cysts. Less well demonstrated renal cysts. Less well-demonstrated splenic low-attenuatio n foci. No renal calculus or obstruction. No other acute process.
[2018-08-04] MEDS ORDERED: Morphine 4 MG/ML VIAL ONE (17:17)
== END 2018-08-04 18:28 | disposition home or self-care (01) ==
LOC: ERS 12:25
DX: K76.89 Other specified diseases of liver (principal); D64.9 Anemia, unspecified; N28.1 Cyst of kidney, acquired; R91.1 Solitary pulmonary nodule; K21.9 Gastro-esophageal reflux disease without esophagitis; N40.0 Benign prostatic hyperplasia without lower urinary tract symptoms; I10 Essential (primary) hypertension; M19.90 Unspecified osteoarthritis, unspecified site; F17.210 Nicotine dependence, cigarettes, uncomplicated; Z79.899 Other long term (current) drug therapy; Z79.891 Long term (current) use of opiate analgesic
CPT/HCPCS: 36415; 72100; 74176; 80053; 81003; 83690; 85025; 96361; 96374; 96375; J1885; J2270

== ENCOUNTER 2018-08-21 08:26 | Outpatient (CLI) | payer MEDICARE, MEDICAID ==
--- NOTE | 2018-08-21 10:11 | CT ---
EXAM: CTA Angio Abd W WO Con 3-D reconstructions are provided PROVIDED CLINICAL HISTORY: Hypertension, renal mass. Enlarged prostate gland. COMPARISON: 02/22/2018 FINDINGS: Atherosclerotic vascular calcifications and plaque are seen in the abdominal aorta and involving the iliac arteries. The abdominal aorta is normal in caliber without evidence of an aortic dissection. There is mild narrowing involving the distal right common iliac artery as well as the origin of the r ight internal iliac artery. The celiac, superior mesenteric, and inferior mesenteric arteries are patent. There are 2 patent renal arteries seen bilaterally. A 6 mm noncalcified pulmonary nodule is seen in the left lower lobe pulmonary nodule was seen on a CT thorax on 07/21/2018 and measured 4 mm on that examination. No additional pulmonary nodule is seen at either lung base. Stable scattered hypodense lesions are again seen in the liver with scattered hypodense lesions also again seen in the spleen. The heterogeneously enhancing mass projection of the midportion superior pole right kidney is again s een and measures approximately 1.8 cm in maximal dimensions which is unchanged in size on similar slice selections on prior exams. A subcentimeter hypodense lesion is seen in the superior pole right kidney which represented a larger cyst measuring 2.4 cm on study on 10/26/2017. A subcentimeter hypodense lesion is again seen in the superior pole left kidney statistically likely representing a cyst. The pancreas and bilateral adrenal glands demonstrate a normal CT appearance for arterial phase of im aging. There is no evidence of lymphadenopathy. No other interval change., IMPRESSION: 1. Stable heterogeneously enhancing right renal lesion. Neoplastic process such renal cell carcinoma is diagnosis of exclusion. 2. Multiple stable hypodense splenic lesions. Exact etiology is uncertain. These cystic lesions canno t be characterized as cysts based on this examination. Infectious process is a different consideration. Lymphoma would be a differential consideration, but there is no lymphadenopathy seen i n the remainder of the visualized abdomen. 3. Stable hypodense lesions in each lobe the liver also difficult to characterize but may represent s mall hepatic cysts. 4. Slight interval enlargement of a left lower lobe pulmonary nodule previously measuring 4 mm on 06/27, and measures 6 mm on today's exam. There was an additional nodular density at the left lung base on study of 10/26/2017 which is not seen on today's exam. 5. Two patent bilateral renal arteries are visualized without focal stenosis.
[2018-08-21] MEDS ORDERED: Iopamidol 370 76% 100 ML VIAL ONE (11:22)
== END 2018-08-21 08:27 | disposition home or self-care (01) ==
LOC: CT 08:26
PROVIDERS: ATTEND Urology
DX: N28.9 Disorder of kidney and ureter, unspecified (principal); D73.9 Disease of spleen, unspecified; K76.9 Liver disease, unspecified
CPT/HCPCS: 74175; Q9967

== ENCOUNTER 2018-11-26 08:06 | Day surgery (SDC) | payer MEDICARE, MEDICAID ==
[2018-11-26 08:16] LABS: #Basophils 0.1 thou/uL (0.0-0.2); #Eosinphils 0.1 thou/uL (0.0-0.7); #Lymphocytes 2.4 thou/uL (1.20-3.40); #Monocytes 0.5 thou/uL (0.11-0.59); #Neutrophils 6.7 thou/uL (1.40-6.50); %Lymphocytes 24.1 % (21.0-51.0); %Monocytes 5.5 % (0.0-10.0); %Neutrophils 68.3 % (42.0-75.0); Hemoglobin 14.7 g/dL (14.0-18.0); Mean Corpuscular HGB CONC 34.3 g/dL (32.0-36.0); Mean Corpuscular Hemoglobin 32.9 pg (27.0-31.0); Platelet Count 180 thou/uL (130-400); RBC Distribution Width 11.9 % (11.5-14.5); Red Blood Cell (RBC) Count 4.47 mill/uL (4.70-6.10); White Blood Cell (WBC) Count 9.8 thou/uL (4.8-10.8)
[2018-11-26 08:26] LABS: INR-International Normal Ratio 0.9; PTT 29.1 SEC (22.9-36.1); Prothrombin Time 12.6 SEC (12.0-14.7)
[2018-11-26 09:29] VITALS: BMI 24.5
[2018-11-26 09:30] VITALS: BP 127/79; TEMP 98.5
--- NOTE | 2018-11-26 13:02 | CT ---
CT GUIDED BIOPSY OF THE EXOPHYTIC RIGHR RENAL MASS: Comparison: 08-04-18, 08-21-18 FINDINGS: Successful CT guided biopsy. Two 18 gauge core biopsy samples were obtained. Lesional tissue is repor joseph. No immediate or post procedure complication. Technique: Consent was obtained to perform a CT guided biopsy of exophytic mass in the right kidney. Patient was placed in a right anterior oblique orientation. Exophytic lesion was identified. Skin was prepped an d draped in sterile fashion. 1% Lidocaine buffered with sodium bicarbonate was used for local anesthe carmen. Under CT guidance, a 22 gauge metallic trocar was advanced into the exophytic lesion. Through th is metallic trocar, two 18 gauge core biopsy samples were obtained. Regional tissue was present. No i mmediate or post procedure complications. Conscious sedation: 100 micrograms of Fentanyl, 1 milligram Versed. IMPRESSION: Successful CT guided biopsy of exophytic mass emanating from the right kidney. Lesional tissue is rep orted. POS: [facility]
== END 2018-11-26 12:25 | disposition home or self-care (01) ==
LOC: CT 08:06
PROVIDERS: ATTEND Urology
PROC: 0TB03ZX Excision of Right Kidney, Percutaneous Approach, Diagnostic (ICD-10-PCS; principal; 2018-11-26)
DX: C64.1 Malignant neoplasm of right kidney, except renal pelvis (principal); K21.9 Gastro-esophageal reflux disease without esophagitis; I10 Essential (primary) hypertension; F17.210 Nicotine dependence, cigarettes, uncomplicated; N40.1 Benign prostatic hyperplasia with lower urinary tract symptoms; R35.0 Frequency of micturition; R35.1 Nocturia; R39.12 Poor urinary stream; R91.1 Solitary pulmonary nodule; Z79.899 Other long term (current) drug therapy
CPT/HCPCS: 36415; 50200; 77002; 85025; 85610; 85730; 88305; 88333; 88334

== ENCOUNTER 2019-02-10 09:11 | Outpatient (CLI) | payer MEDICARE, MEDICAID ==
--- NOTE | 2019-02-10 13:06 | RAD ---
XR Chest Pa Lat STANDARD HISTORY: Preoperative evaluation COMPARISON: 06/13/2017 FINDINGS: The heart size is normal. The lungs are well expanded without focal areas of consolidation, pneumothorax or pleural effusions. IMPRESSION: No radiographic evidence of acute cardiopulmonary process.
[2019-02-10 13:22] LABS: Bacteria/HPF None Seen HPF (None Seen); Bilirubin Negative (Negative); Blood, Urine Negative (Negative); Clarity Clear (Clear); Glucose, Urine (Dipstick) Normal (Negative); Leukocyte Negative Leu/uL (Negative); Nitrite Negative (Negative); Protein, Urine (Dipstick) Negative (Neg-Trace); RBC/HPF 0-3 HPF (0-3); Squamous Epithelial 0-3 HPF (0-3); WBC/HPF 0-3 HPF (0-3)
[2019-02-10 13:25] LABS: Hemoglobin 14.1 g/dL (14.0-18.0); Mean Corpuscular HGB CONC 34.2 g/dL (32.0-36.0); Mean Corpuscular Hemoglobin 33.3 pg (27.0-31.0); Mean Corpuscular Volume 97.3 fL (78.0-98.0); Mean Platelet Volume 7.9 fL (7.4-10.4); Platelet Count 165 thou/uL (130-400); RBC Distribution Width 11.9 % (11.5-14.5); Red Blood Cell (RBC) Count 4.25 mill/uL (4.70-6.10); White Blood Cell (WBC) Count 10.2 thou/uL (4.8-10.8)
[2019-02-10 13:26] LABS: PTT 27.9 SEC (22.9-36.1)
[2019-02-10 13:27] LABS: Prothrombin Time 12.7 SEC (12.0-14.7)
[2019-02-10 13:50] LABS: Anion Gap 13 mmol/L (10-20); BUN (Urea Nitrogen) 15 mg/dL (8.4-25.7); Calc. Creatinine Clearance 0 mL/min (70-130); Calcium 9.5 mg/dL (7.8-10.44); Carbon Dioxide 26 mmol/L (22-29); Chloride 105 mmol/L (98-107); Estimated GFR-MDRD 87; Glucose 97 mg/dL (70-105); Potassium 4.3 mmol/L (3.5-5.1); Sodium 140 mmol/L (136-145)
== END 2019-02-10 09:12 | disposition home or self-care (01) ==
LOC: LABBT 09:11
PROVIDERS: ATTEND Urology
DX: Z01.818 Encounter for other preprocedural examination (principal); N40.0 Benign prostatic hyperplasia without lower urinary tract symptoms; N28.89 Other specified disorders of kidney and ureter; R91.1 Solitary pulmonary nodule
CPT/HCPCS: 71046; 80048; 81001; 85027; 85610; 85730; 87086; 93005; 93010

== ENCOUNTER 2019-02-10 11:00 | Inpatient (IN) | payer MEDICARE, MEDICAID ==
[2019-02-18] MEDS ORDERED: Fentanyl 250 MCG/5 ML VIAL ONE (06:50)
[2019-02-18] MEDS ORDERED: Midazolam HCl 2 mg/2 ml Vial ONE (06:52)
[2019-02-18] MEDS ORDERED: Fentanyl 100 MCG/2 ML VIAL ONE ×4 (06:52→13:37)
[2019-02-18] MEDS ORDERED: Dexamethasone 4 mg/ml Vial ONE (06:53)
[2019-02-18] MEDS ORDERED: CEFAZOLIN 1 GM VIAL ONE (07:15)
[2019-02-18] MEDS ORDERED: Levofloxacin 500 mg/D5W 100 ml Premix Bag ONE (07:15)
[2019-02-18] MEDS ORDERED: Sodium Chloride 0.9% 100 ML ONE (07:15)
[2019-02-18] MEDS ORDERED: CeleCOXIB 100 MG CAP ONE (07:16)
[2019-02-18] MEDS ORDERED: Gabapentin 300 MG CAP ONE (07:16)
[2019-02-18] MEDS ORDERED: Lidocaine 1% (PF) 30 ML VIAL ONE (07:20)
[2019-02-18] MEDS ORDERED: Ketamine 50 MG/ML (10ML VIAL) ONE (07:45)
[2019-02-18] MEDS ORDERED: EPINEPHrine 1 MG/10 ML Abboject SYRINGE ONE (10:02)
[2019-02-18] MEDS ORDERED: EPINEPHrine 1 MG/ML AMP ONE (10:02)
[2019-02-18] MEDS ORDERED: ePHEDrine/0.9% NaCl/PF SYRINGE 50 mg/10 ml ONE (10:03)
[2019-02-18] MEDS ORDERED: HYDROmorphone 0.5 MG/0.5 ML SYRINGE ONE ×2 (12:44→13:07)
--- NOTE | 2019-02-18 13:02 | RAD ---
Exam: Chest one view HISTORY:Postoperative Comparison: 02/10/2019 FINDINGS: Lungs: Shallow depth of inspiration Cardiac silhouette:Accentuated by technique Pulmonary vessels: Prominence of bilateral perihilar regions Pleural Spaces: Clear Pneumothorax: None Osseous abnormalities: None of acuity. IMPRESSION: Bilateral perihilar opacities. This could relate to mild vascular congestion or accentuat ion by shallow depth inspiration.
[2019-02-18 13:09] LABS: #Lymphocytes 0.8 thou/uL (1.20-3.40); #Monocytes 0.1 thou/uL (0.11-0.59); #Neutrophils 7.9 thou/uL (1.40-6.50); %Basophils 0.1 % (0.0-1.0); %Eosinophils 0.2 % (0.0-10.0); %Lymphocytes 8.8 % (21.0-51.0); %Monocytes 1.3 % (0.0-10.0); %Neutrophils 89.7 % (42.0-75.0); Hemoglobin 12.2 g/dL (14.0-18.0); Mean Corpuscular HGB CONC 33.9 g/dL (32.0-36.0); Mean Corpuscular Hemoglobin 32.8 pg (27.0-31.0); Mean Corpuscular Volume 96.9 fL (78.0-98.0); Platelet Count 152 thou/uL (130-400); RBC Distribution Width 11.8 % (11.5-14.5); Red Blood Cell (RBC) Count 3.72 mill/uL (4.70-6.10); White Blood Cell (WBC) Count 8.8 thou/uL (4.8-10.8)
[2019-02-18] MEDS ORDERED: Morphine 4 MG/ML VIAL ONE (13:47)
[2019-02-18] MEDS ORDERED: HYDROmorphone 2 MG/ML VIAL ONE (14:20)
[2019-02-18] MEDS ORDERED: Morphine 2 MG/ML SYRINGE ONE (14:56)
[2019-02-18] MEDS ORDERED: Oxybutynin 5 MG TAB PO PRN (15:50)
[2019-02-18] MEDS ORDERED: Ondansetron PF 4 MG/2 ML Vial IVP PRN (15:50)
[2019-02-18] MEDS ORDERED: diphenhydrAMINE 25 MG CAP PO PRN (15:50)
[2019-02-18] MEDS ORDERED: Mag-Al 1200 mg/1200 mg/30 ML UDCUP PO PRN (15:50)
[2019-02-18] MEDS ORDERED: Bisacodyl 10 MG SUPP PR PRN (15:50)
[2019-02-18] MEDS ORDERED: Sodium Chloride 0.9% 1,000 ML IV SCH (15:50)
[2019-02-18] MEDS ORDERED: hydrALAZINE 20 MG/ML VIAL SLOW IVP PRN (15:50)
[2019-02-18] MEDS: Fentanyl 100 MCG/2 ML VIAL SLOW IVP PRN ×2 (16:13→20:27)
[2019-02-18] MEDS: CEFAZOLIN 1 GM in Sodium Chloride 0.9% 100 ML IVPB SCH ×2 (16:16→23:35)
[2019-02-18 16:38] VITALS: BMI 24.9
--- NOTE | 2019-02-18 16:52 | OP ---
DATE OF PROCEDURE: 02/18/2019 SERVICE: Urology. 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 PROCEDURE PERFORMED: Zero ischemia right robotic partial nephrectomy. INDICATIONS FOR PROCEDURE: Mr. Benjamin is a 53-year-old male, who was noted to have a right renal mass. Biopsy demonstrated clear cell carcinoma. We elected for robotic-assisted laparoscopic partial nephrectomy. He does have a very complex renal hilum with multiple vessels, both veins and arteries and due to the complexity, I figured it would be better to do a robotic partial nephrectomy without hilar clamping given the relatively small nature of the mass. We discussed risks and benefits as well as alternatives. The patient agreed to proceed forward. DESCRIPTION OF PROCEDURE: After identification of armband and verification of consent, the patient was brought back to the operating room, where he underwent general anesthesia with endotracheal intubation. He was then placed in the modified left lateral decubitus position with the bed flexed and all pressure points padded. He had a Ramirez catheter inserted. He was then prepped and draped in usual sterile fashion. After appropriate time-out, port sites were obtained first with a Veress needle entry to insufflate the peritoneum. This was done just below the right costal margin. Insufflation was carried out at high flow and low pressure. Ports were placed with the camera and two 8 mm working ports. An additional 8 mm robotic port, which could be used for the judicial administrative assistant or the robot and a 12 mm judicial administrative assistant port and a 5 mm liver retractor port. The robot was then docked, and the robotic portion of surgery begun. The colon was reflected medially by dissecting along the white line of Toldt. The duodenum was identified, mobilized, and retracted medially along the lateral edge until the IVC could be identified. Both renal veins were identified. The renal arteries, which resided between the renal veins were not dissected, but gently exposed slightly to identify their location in case nephrectomy or complete clamping was necessary due to hemorrhage. The retroperitoneal space behind the kidney was opened between the psoas muscle in the kidney by finding the ureter and dissecting in between until this space was wide open. The liver was mobilized free from the Gerota fascia with sharp dissection and electrocautery. The Gerota fascia was entered, and the kidney was exposed on the surface of the capsule by removing the Gerota fat, but keeping nice pedicle so that the fat could be brought back up. This was mobilized inferiorly, and the tumor was identified on the superolateral aspect of the kidney, where had been previously noted on the CT scan. Intraoperative ultrasound was performed to identify the entire mass, which measured approximately 1.3 to 1.4 cm deep and approximately 1.5 cm wide. We felt it would be favorable to go for zero ischemia partial nephrectomy. The tumor site was marked using the monopolar scissors, and dissection was carried down through the parenchyma using combination of cautery and sharp dissection. Bleeding was controlled by increasing the insufflation pressure up to 23 mmHg and also by compressing the kidney and sucking out blood as the tumor was enucleated. The tumor was completely removed, and there was an area that looked a little bit odd that was left behind after the tumor was removed, which was excised, and sent off as a renal tumor bed biopsy. These were both sent for frozen margin, and renorrhaphy was performed with 0 Vicryl with a sliding lock technique, which resulted in good hemostasis. After the renorrhaphy was completed, the frozen section came back with negative margins on the mass, but the extrarenal tumor bed biopsy came back positive with clear cell carcinoma. As such, the renorrhaphy sutures were cut out and removed, and the tumor bed opened back up and a fairly significant more amount of tissue was removed in the location of where the renal tumor bed biopsy was previously obtained. Once this was removed, extensive cautery was performed of the entire renal base with both bipolar and monopolar to sherwin and destroy any potential residual cancer cells that may be present along the tumor bed. Once cautery was completed, the renorrhaphy was redone using a new [address]-1 using a sliding lock technique in a horizontal mattress fashion until the entire mass bed was closed. Once closed, Lapra-Tys were placed above the Hem-O-Demetrius to keep them from sliding out. FloSeal was placed over the incision line, and then the fat of Gerota's brought back up and sutured into place to try to keep things as anatomic as possible. A drain was brought in through the most inferior robotic port. The Gerota fat was closed using three interrupted 0 Vicryl sutures. The robot was then undocked, and a Darci-Aj was used to close one of the robotic ports which the hole was a little bit larger and the two 12 mm ports. Insufflation was then taken out. All ports were removed, and the remaining skin incisions were closed with a 4-0 Monocryl in a subcuticular fashion. A drain stitch with a 2-0 nylon was placed around the drain. The patient was then taken out of positioning back to the supine position, awakened, and taken to PACU for recovery in stable condition. COMPLICATIONS: None. ESTIMATED BLOOD LOSS: Approximately 150 mL. RETAINED TUBES AND DRAINS: A 16-English Ramirez and a #19 ZAHRAA drain. SPECIMENS: Renal tumor along with several biopsies and tissue excisions somewhere in the renal bed. DISPOSITION: The patient will be admitted to the hospital and once adequately recovered, he will be discharged home for followup on an outpatient basis. Job ID: [id number]
[2019-02-18] MEDS: Acetaminophen 500 MG TAB PO SCH ×2 (17:18→23:34)
[2019-02-18] MEDS: traMADol HCl 50 MG TAB PO SCH ×2 (17:19→23:34)
[2019-02-18] MEDS: oxyCODONE 5 MG TAB PO PRN ×2 (18:00→22:30)
[2019-02-18] MEDS: CeleCOXIB 100 MG CAP PO SCH (20:28)
[2019-02-18] MEDS: Docusate 100 MG CAP PO SCH (20:29)
[2019-02-18] MEDS ORDERED: Rosuvastatin 20 MG TAB PO SCH (21:00)
[2019-02-19] MEDS: oxyCODONE 5 MG TAB PO PRN ×2 (02:26→08:52)
[2019-02-19 05:02] LABS: #Lymphocytes 1.2 thou/uL (1.20-3.40); #Monocytes 0.8 thou/uL (0.11-0.59); #Neutrophils 9.5 thou/uL (1.40-6.50); %Eosinophils 0.2 % (0.0-10.0); %Lymphocytes 10.8 % (21.0-51.0); %Monocytes 6.8 % (0.0-10.0); %Neutrophils 82.2 % (42.0-75.0); Hemoglobin 12.4 g/dL (14.0-18.0); Mean Corpuscular HGB CONC 34.2 g/dL (32.0-36.0); Mean Corpuscular Volume 96.4 fL (78.0-98.0); Mean Platelet Volume 7.3 fL (7.4-10.4); Platelet Count 170 thou/uL (130-400); RBC Distribution Width 11.8 % (11.5-14.5); Red Blood Cell (RBC) Count 3.77 mill/uL (4.70-6.10); White Blood Cell (WBC) Count 11.5 thou/uL (4.8-10.8)
[2019-02-19 05:18] LABS: Anion Gap 11 mmol/L (10-20); BUN (Urea Nitrogen) 8 mg/dL (8.4-25.7); Calc. Creatinine Clearance 102 mL/min (70-130); Calcium 8.6 mg/dL (7.8-10.44); Carbon Dioxide 23 mmol/L (22-29); Chloride 109 mmol/L (98-107); Estimated GFR-MDRD Greater than 90; Glucose 116 mg/dL (70-105); Potassium 3.6 mmol/L (3.5-5.1); Sodium 139 mmol/L (136-145)
[2019-02-19] MEDS: traMADol HCl 50 MG TAB PO SCH ×2 (05:31→11:58)
[2019-02-19] MEDS: Acetaminophen 500 MG TAB PO SCH ×2 (05:31→11:58)
[2019-02-19] MEDS: CeleCOXIB 100 MG CAP PO SCH (08:41)
[2019-02-19] MEDS: Docusate 100 MG CAP PO SCH (08:42)
[2019-02-19] MEDS: CEFAZOLIN 1 GM in Sodium Chloride 0.9% 100 ML IVPB SCH (08:42)
[2019-02-19] MEDS ORDERED: Tamsulosin HCl 0.4 MG CAP PO SCH (09:00)
[2019-02-19] MEDS ORDERED: Atenolol 50 MG TAB PO SCH (09:00)
[2019-02-19] MEDS ORDERED: NIFEdipine XL 60 MG TAB PO SCH (09:00)
[2019-02-19] MEDS ORDERED: FLU VACC QS2019-20(6MOS UP)/PF 60 MCG/0.5 ML SYRINGE IM ONE (09:00)
[2019-02-19] MEDS ORDERED: HYDROcodone/Acetaminophen 10/325 mg Tablet PO PRN (09:16)
[2019-02-19 13:25] VITALS: BP 103/62; TEMP 98.4
--- NOTE | 2019-02-19 15:05 | PRG ---
DATE OF SERVICE: 02/19/2019 SUBJECTIVE: The patient states he is having some soreness, but his pain is controlled with oral pain medication. He has not yet gotten up out of bed overnight. His hemoglobin was stable, so I did release him for full activity. He was able to walk afterwards. He states after advancing his diet, he has been able to eat. He has also voided since his catheter has been removed. His ZAHRAA drain has been putting out only small amounts of fluid. He denies any chest pain or shortness of breath or lower extremity swelling. OBJECTIVE: VITAL SIGNS: Temperature 98.4, pulse 65, respirations 16, blood pressure 103/62, saturations 94% on room air. GENERAL: No apparent distress. Communicative and alert. CARDIOVASCULAR: Regular rate and rhythm. ABDOMEN: Soft, moderately tender to palpation on the right. Nontender on the left. Incision is clean, dry, and intact. ZAHRAA drain serosanguineous. : Unremarkable. EXTREMITIES: No clubbing, cyanosis, or edema. LABORATORY EVALUATION: The full set of labs are in the [facility] system, which I have reviewed. Of note, the patient's white count is 11.5 with a hemoglobin of 12.4. Creatinine is 0.8. ASSESSMENT AND PLAN: A 53-year-old male with clear cell carcinoma, Ladonna grade 1, status post robotic right partial nephrectomy, postop day 1, recovering quite well. I will remove his ZAHRAA drain. He has already ambulated. He is tolerating a regular diet and keeping himself hydrated. His pain is controlled. He is on a pain contract with his primary care doctor and I have stated that he will need to get his pain medications from Dr. Smith as I will not be able to prescribe any additional pain medications without breaching his pain contract. The patient understands and states he will contact Dr. Smith if further pain medications are necessary. I will plan to see him back in 1 week for postop check. Job ID: [id number]
--- NOTE | 2019-02-19 19:41 | DIS ---
DATE OF ADMISSION: 02/18/2019 DATE OF DISCHARGE: 02/19/2019 ADMITTING DIAGNOSIS: Renal cell carcinoma. DISCHARGE DIAGNOSIS: Renal cell carcinoma. PROCEDURE PERFORMED: Robotic assisted laparoscopic right partial nephrectomy with zero ischemia. HISTORY OF PRESENT ILLNESS: Mr. Benjamin is a 53-year-old male with BPH and RCC, diagnosed on biopsy. He is now coming in for definitive management of his renal cell carcinoma with partial nephrectomy. Risks and benefits as well as alternatives were discussed and he agreed to proceed forward. Full H and P can be found in the dictated portion of the [facility] system. HOSPITAL COURSE: After surgery (please see operative note for details), the patient was admitted to the hospital for postoperative recovery. He had a ZAHRAA drain and a Ramirez catheter, was on clear liquids. His pain was controlled on the ERAS protocol. He was having more pain than expected, but he is also narcotic dependent. His Ramirez catheter was removed on postop day #1. He was able to void spontaneously. He was able to get out of bed after hemoglobin was shown to be increased to 12.4 from 12.2, his creatinine was stable and normal at 0.8. He was able to tolerate a regular diet without any nausea or vomiting. He also was able to get up out of bed and walk. After walking, his ZAHRAA only put out an additional 20 to 30 mL, so it was removed. The patient was cleared to be discharged home and was discharged without further problems. DISPOSITION: Discharged to home. DISCHARGE CONDITION: Good. DISCHARGE MEDICATIONS: Resuming all of his home medications. He will receive his pain medications from Dr. Smith as he is on a pain contract and is not eligible to receive outside prescriptions without further permission. Followup will be in approximately 1 week for postop check. He is to perform light activity only. No strenuous activity, heavy lifting or driving for 10 days, and heavy lifting and strenuous activity restrictions for 4 weeks. He should notify me for fevers, nausea, vomiting, uncontrolled pain, chest pain, shortness of breath, or abdominal distention or gross hematuria or any other concerning signs or symptoms he may have. Job ID: [id number]
== END 2019-02-19 15:20 | disposition home or self-care (01) | DRG 658 ==
LOC: SURG A 02-18 05:58 → EDSTATUS 02-18 11:00 → SURG A 02-18 15:54
PROVIDERS: ADMIT Urology; ATTEND Urology
PROC: 0TB04ZZ Excision of Right Kidney, Percutaneous Endoscopic Approach (ICD-10-PCS; principal; 2019-02-18)
DX: C64.1 Malignant neoplasm of right kidney, except renal pelvis (principal); I10 Essential (primary) hypertension; K21.9 Gastro-esophageal reflux disease without esophagitis
CPT/HCPCS: 36415; 71045; 80048; 85025; 86850; 86900; 86901; 88305; 88307; 88331; J0131; J0171; J0690; J1100; J1170; J1642; J1956; J2001; J2250; J2270; J3010; J3490

== ENCOUNTER 2019-09-15 12:40 | Outpatient (CLI) | payer MEDICARE, MEDICAID ==
[~2019-09-15 12:40] MED LIST changes: -ISOVUE-370 76%-LOCM 1 ML ONE; +Iopamidol-370 76% 500 ML 1 ML ONE
--- NOTE | 2019-09-15 13:40 | CT ---
CT THORAX WITH CONTRAST: DATE: 09/15/2019 HISTORY: Follow-up pulmonary nodules in 54-year-old male COMPARISON: 07/21/2018 FINDINGS: The previously described scattered, tiny noncalcified pulmonary nodules, including left upper lobe, s everal in left lower lobe, at least 2 in the right lower lobe, and at least one in right middle lobe, (all marked with arrows on the current images) are stable. They range in size from 3 mm up to 7 mm. None of them has increased in size. No new nodules. No pleural effusion, consolidation, groundglass lesion, edema, bullous disease, pneumothorax, mediastinal lymphadenopathy, hilar lymphade nopathy, cardiomegaly, pericardial effusion, or destructive osseous lesion. No thoracic aortic aneurysm or dissection. Trachea and bilateral mainstem bronchi are patent and clear. Atherosclerotic coronary artery mild calcification. Several tiny hepatic lesions and multiple small splenic lesions. Largest splenic lesion is up to 22 mm. No interval change in these hepatic and splenic lesio ns since 08/21/2018 CT angiogram of abdomen and pelvis. IMPRESSION: Multiple tiny and small pulmonary nodules, stable for 14 months.
== END 2019-09-15 12:41 | disposition home or self-care (01) ==
LOC: BICCT 12:40
PROVIDERS: ATTEND Internal Medicine Pulmonary Disease
DX: R91.8 Other nonspecific abnormal finding of lung field (principal)
CPT/HCPCS: 71260; Q9967

== ENCOUNTER 2019-10-11 14:12 | Outpatient (CLI) | payer MEDICARE, MEDICAID ==
[~2019-10-11 14:12] MED LIST changes: +Iopamidol 370 76% 100 ML VIAL ONE; -Iopamidol-370 76% 500 ML 1 ML ONE
--- NOTE | 2019-10-11 15:46 | CT ---
CT ABDOMEN WITH AND WITHOUT IV CONTRAST: HISTORY: Clear-cell carcinoma of the right kidney status post surgical resection. COMPARISON: 01/21/2018 and 02/22/2018. FINDINGS: The lung bases are clear. Low-density lesions in the liver and spleen are unchanged. No calcified g allstones are seen. The pancreas and adrenal glands are normal. There are postop changes with interval resection of the right renal masses since the previous exams. Small low-densities lesions in the left kidney are again seen. No new enhancing renal masses are id entified. There is normal contrast excretion into the ureters on either side. No calculi are seen i n the kidneys or the visualized portions of the ureters. No hydroureteral nephrosis is noted on eith er side. No free air, free fluid, or lymphadenopathy is seen in the abdomen. There are vascular calcification s without evidence of aneurysmal dilatation of the abdominal aorta. There are bilateral pars articul socorro defects at L5 level. No osteolytic or osteoblastic lesions are seen. IMPRESSION: Interval postop changes of resection of right renal masses since 01/21/2018. The remainder of the e xam is otherwise stable. POS: MATTHEW
== END 2019-10-11 14:13 | disposition home or self-care (01) ==
LOC: BICCT 14:12
PROVIDERS: ATTEND Urology
DX: C64.1 Malignant neoplasm of right kidney, except renal pelvis (principal); Z98.890 Other specified postprocedural states
CPT/HCPCS: 74170; Q9967

== ENCOUNTER 2019-10-22 12:26 | Emergency (ER) | payer MEDICARE, OTHER | END 2019-10-22 12:48 | disposition home or self-care (01) | LOC: ERS 12:26 | DX: S01.81XD Laceration without foreign body of other part of head, subsequent encounter (principal); K21.9 Gastro-esophageal reflux disease without esophagitis; N40.0 Benign prostatic hyperplasia without lower urinary tract symptoms; I10 Essential (primary) hypertension; E78.00 Pure hypercholesterolemia, unspecified; F17.210 Nicotine dependence, cigarettes, uncomplicated ==

== ENCOUNTER 2020-01-28 12:54 | Emergency (ER) | payer MEDICARE, MEDICAID, OTHER ==
[2020-01-29 12:07] LABS: SARS-CoV-2 MS2 Positive; SARS-CoV-2 N Gene Negative; SARS-CoV-2 S Gene Negative; SARS-CoV-2 by NAA Not Detected (NotDetected); SARS-CoV-2 orf1ab Negative
== END 2020-01-28 13:30 | disposition home or self-care (01) ==
LOC: ERS 12:54
DX: J02.9 Acute pharyngitis, unspecified (principal); Z20.828 Contact with and (suspected) exposure to other viral communicable diseases; F17.210 Nicotine dependence, cigarettes, uncomplicated; K21.9 Gastro-esophageal reflux disease without esophagitis; I10 Essential (primary) hypertension; E78.00 Pure hypercholesterolemia, unspecified; Z79.899 Other long term (current) drug therapy
CPT/HCPCS: 99283; U0003; 87635

== ENCOUNTER 2020-02-02 14:33 | Outpatient (CLI) | payer MEDICARE, MEDICAID ==
--- NOTE | 2020-02-02 16:07 | RAD ---
LUMBAR SPINE 2 VIEWS: Date: 02/02/2020 HISTORY: Low back pain. COMPARISON: 08/04/2018. FINDINGS: Slight curvature to the left is stable. Mild degenerative changes of the lumbar spine are unchanged. Vertebral bodies maintain height. Minimal listhesis at L5-S1 is stable. Facet hypertrophy is again no joseph. IMPRESSION: Mild degenerative changes of the lumbar spine. Stable findings from the prior exam. POS: JOSEP
== END 2020-02-02 14:34 | disposition home or self-care (01) ==
LOC: BICRAD 14:33
PROVIDERS: ATTEND Family Medicine
DX: M51.26 Other intervertebral disc displacement, lumbar region (principal); M47.816 Spondylosis without myelopathy or radiculopathy, lumbar region
CPT/HCPCS: 72100

== ENCOUNTER 2020-03-13 12:05 | Outpatient (CLI) | payer MEDICARE, MEDICAID ==
--- NOTE | 2020-03-13 13:27 | CT ---
CT CHEST WITHOUT CONTRAST: INDICATION: Followup pulmonary nodules. COMPARISON: Comparison is made to chest CT 09/15/2019. FINDINGS: Bilateral pulmonary nodules are again noted. In the left upper lobe, a 3 mm nodule in the left apical region is stable. A 2-3 mm nodule in the re gion of the lingula is stable. In the left lower lobe at least 4 small nodules are identified. These all appear stable. The larges t is a bilobed nodule seen on image 113 axial measuring up to 6 mm total dimension, stable in appeara nce. At least 2 small right middle lobe nodules measuring in the 3 mm range appear stable. Two small right lower lobe nodules with the largest measuring approximately 5 mm. Both are stable. No new nodule. No infiltrate or effusion. Mediastinum shows no evidence of adenopathy. Images thro ugh the upper abdomen again reveal small hepatic low-density lesions which are not as well seen today on the noncontrast study. The splenic lesions described previously are not apparent today on this n onenhanced exam. IMPRESSION: Stable bilateral pulmonary nodules. There are numerous nodules seen bilaterally which are marked on the axial images. POS: AGW
== END 2020-03-13 12:06 | disposition home or self-care (01) ==
LOC: BICCT 12:05
PROVIDERS: ATTEND Internal Medicine Pulmonary Disease
DX: R91.8 Other nonspecific abnormal finding of lung field (principal)
CPT/HCPCS: 71250

== ENCOUNTER 2020-07-31 15:23 | Outpatient (CLI) | payer MEDICARE, MEDICAID | END 2020-07-31 15:24 | disposition home or self-care (01) | LOC: BICRAD 15:23 | PROVIDERS: ATTEND Family Medicine | DX: M51.26 Other intervertebral disc displacement, lumbar region (principal); M25.531 Pain in right wrist; M25.532 Pain in left wrist; M47.816 Spondylosis without myelopathy or radiculopathy, lumbar region; Z98.890 Other specified postprocedural states | CPT/HCPCS: 72100 ==

== ENCOUNTER 2020-10-16 08:08 | Outpatient (CLI) | payer MEDICARE, MEDICAID ==
[2020-10-16] MEDS ORDERED: Iopamidol-370 76% 500 ML 1 ML ONE (09:11)
== END 2020-10-16 08:09 | disposition home or self-care (01) ==
LOC: BICCT 08:08
PROVIDERS: ATTEND Urology
DX: C64.1 Malignant neoplasm of right kidney, except renal pelvis (principal); K76.9 Liver disease, unspecified; K86.89 Other specified diseases of pancreas; N28.9 Disorder of kidney and ureter, unspecified; Z98.890 Other specified postprocedural states
CPT/HCPCS: 71046; 74170; Q9967

== ENCOUNTER 2021-01-15 08:57 | Emergency (ER) | payer MEDICARE, MEDICAID ==
[2021-01-15 16:03] LABS: SARS-CoV-2 PCR by NAA Not Detected (NotDetected)
== END 2021-01-15 10:35 | disposition home or self-care (01) ==
LOC: ERS 08:57
DX: J02.9 Acute pharyngitis, unspecified (principal); R05 Cough; R09.81 Nasal congestion; R52 Pain, unspecified; M79.10 Myalgia, unspecified site; K21.9 Gastro-esophageal reflux disease without esophagitis; N40.0 Benign prostatic hyperplasia without lower urinary tract symptoms; I10 Essential (primary) hypertension; E78.00 Pure hypercholesterolemia, unspecified; M19.90 Unspecified osteoarthritis, unspecified site; F17.210 Nicotine dependence, cigarettes, uncomplicated; Z20.822 Contact with and (suspected) exposure to COVID-19; Z85.528 Personal history of other malignant neoplasm of kidney
CPT/HCPCS: 99283; U0003; U0005

== ENCOUNTER 2021-10-10 21:33 | Emergency (ER) | payer MEDICARE, MEDICAID | END 2021-10-11 00:32 | disposition left against medical advice (07) | LOC: ERS 21:33 | DX: Z53.21 Procedure and treatment not carried out due to patient leaving prior to being seen by health care provider (principal) ==

== ENCOUNTER 2022-02-25 13:24 | Outpatient (CLI) | payer MEDICARE, OTHER ==
[2022-02-25] MEDS ORDERED: Iopamidol-370 76% 500 ML 1 ML ONE (14:30)
== END 2022-02-25 13:25 | disposition home or self-care (01) ==
LOC: BICCT 13:24
PROVIDERS: ATTEND Urology
DX: C64.1 Malignant neoplasm of right kidney, except renal pelvis (principal); N40.0 Benign prostatic hyperplasia without lower urinary tract symptoms
CPT/HCPCS: 71046; 74170; 82565; Q9967

== ENCOUNTER 2022-04-01 15:50 | Outpatient (CLI) | payer MEDICARE, OTHER | END 2022-04-01 15:51 | disposition home or self-care (01) | LOC: ULT 15:50 | PROVIDERS: ATTEND Nurse Practitioner Adult Health | DX: R59.0 Localized enlarged lymph nodes (principal) | CPT/HCPCS: 76536 ==

== ENCOUNTER 2022-04-08 13:44 | Outpatient (CLI) | payer MEDICARE, MEDICAID | END 2022-04-08 13:45 | disposition home or self-care (01) | LOC: BICCT 13:44 | PROVIDERS: ATTEND Nurse Practitioner Adult Health | DX: R59.0 Localized enlarged lymph nodes (principal); F17.200 Nicotine dependence, unspecified, uncomplicated | CPT/HCPCS: 70491; 82565 ==

== ENCOUNTER 2022-12-27 12:03 | Emergency (ER) | payer MEDICARE, OTHER ==
[2022-12-27 12:31] LABS: #Monocytes 0.8 thou/uL (0.11-0.59); #Neutrophils 8.6 thou/uL (1.40-6.50); %Basophils 0.3 % (0.0-1.0); %Eosinophils 0.1 % (0.0-10.0); %Lymphocytes 12.2 % (21.0-51.0); %Monocytes 7.1 % (0.0-10.0); %Neutrophils 79.7 % (42.0-75.0); Hematocrit 43.4 % (42.0-52.0); Hemoglobin 14.8 g/dL (14.0-18.0); Mean Corpuscular HGB CONC 34.1 g/dL (32.0-36.0); Mean Corpuscular Hemoglobin 32.1 pg (27.0-31.0); Mean Corpuscular Volume 94.1 fl (78.0-98.0); Mean Platelet Volume 8.9 fL (7.4-10.4); Platelet Count 196 10x3/uL (130-400); Red Blood Cell (RBC) Count 4.61 mill/uL (4.70-6.10); White Blood Cell (WBC) Count 10.8 10x3/uL (4.8-10.8)
[2022-12-27 12:58] LABS: ALT (SGPT) 17 U/L (8-55); AST (SGOT) 19 U/L (5-34); Albumin 4.5 g/dL (3.5-5.0); Alkaline Phosphatase 73 U/L (40-110); Anion Gap 17 mmol/L (10-20); BUN (Urea Nitrogen) 11 mg/dL (8.4-25.7); Bilirubin, Total 0.7 mg/dL (0.2-1.2); Calc. Creatinine Clearance 0 mL/min (70-130); Calcium 9.4 mg/dL (7.8-10.44); Carbon Dioxide 20 mmol/L (22-29); Chloride 103 mmol/L (98-107); Estimated GFR 82; Glucose 142 mg/dL (70-105); Potassium 3.5 mmol/L (3.5-5.1); Protein, Total 7.5 g/dL (6.0-8.3); Sodium 136 mmol/L (136-145)
[2022-12-27 13:03] LABS: Troponin I Less than 0.010 ng/mL (< 0.028)
[2022-12-27 13:37] LABS: Acetaminophen Less than 10 mcg/mL (10.0-30.0); Alcohol Less than 10.0 mg/dL (Less than 10); Salicylate Less than 8.0 mg/dL (15.0-30.0)
[2022-12-27 13:41] LABS: CK (CPK) 138 U/L (30-200); Lipase 21 U/L (8-78)
[2022-12-27 14:33] LABS: Bacteria/HPF None Seen HPF (None Seen); Bilirubin Negative (Negative); Blood, Urine Negative (Negative); CAUTI Indications for Culture Alt mental st,lethar; Clarity Clear (Clear); Glucose, Urine (Dipstick) 150 mg/dL (Negative); Ketone, Urine Negative (Negative); Leukocyte Negative Leu/uL (Negative); Nitrite Negative (Negative); Protein, Urine (Dipstick) Negative (Neg-Trace); RBC/HPF None Seen HPF (0-3); Specific Gravity, Urine 1.016 (1.002-1.036); Squamous Epithelial 0-3 HPF (0-3); Urobilinogen Normal mg/dL (Less than 2); WBC/HPF 0-3 HPF (0-3)
[2022-12-27 14:36] LABS: Urine Culture Reflex No No
[2022-12-27 14:40] LABS: Amphetamine Not Detected (NotDetected); Barbiturates Screen Not Detected (NotDetected); Benzodiazepine Screen Not Detected (NotDetected); Cocaine Metabolite Screen Detected (NotDetected); Methadone Not Detected (NotDetected); Methamphetamine Not Detected (NotDetected); Opiate Screen Detected (NotDetected); Oxycodone Screen Not Detected (NotDetected); Phencyclidine (PCP) Not Detected (NotDetected); THC/Cannabinoid Screen Not Detected (NotDetected); Tricyclic Screen Not Detected (NotDetected)
[2022-12-27 15:21] LABS: SARS-CoV-2 NAA Rapid Test Not Detected (NotDetected)
== END 2022-12-27 14:54 | disposition home or self-care (01) ==
LOC: ERS 12:03
DX: E86.0 Dehydration (principal); F14.10 Cocaine abuse, uncomplicated; I10 Essential (primary) hypertension; E78.5 Hyperlipidemia, unspecified; K21.9 Gastro-esophageal reflux disease without esophagitis; F17.210 Nicotine dependence, cigarettes, uncomplicated; Z20.822 Contact with and (suspected) exposure to COVID-19
CPT/HCPCS: 71045; 80306; 80307; 81001; 82550; 83605; 83690; 83880; 84484; 85379; 87040; 93005; U0002; 80053; 84443; 85025; 96360; 96361

== ENCOUNTER 2023-04-30 09:12 | Outpatient (CLI) | payer MEDICARE, MEDICAID ==
[~2023-04-30 09:12] MED LIST changes: -Iopamidol 370 76% 100 ML VIAL ONE; +Iopamidol-370 76% 500 ML MDV (1 ML CHARGE) ONE
== END 2023-04-30 09:13 | disposition home or self-care (01) ==
LOC: BICCT 09:12
PROVIDERS: ATTEND Urology
DX: C64.1 Malignant neoplasm of right kidney, except renal pelvis (principal)
CPT/HCPCS: 74160; 82565

== ENCOUNTER 2023-06-26 17:19 | Emergency (ER) | payer MEDICAID, MEDICARE ==
[2023-06-26] MEDS ORDERED: Ketorolac Tromethamine 30 MG (1 mL) VIAL ONE (18:40)
== END 2023-06-26 21:03 | disposition home or self-care (01) ==
LOC: ERS 17:19
DX: G89.29 Other chronic pain (principal); M54.50 Low back pain, unspecified; I10 Essential (primary) hypertension; K21.9 Gastro-esophageal reflux disease without esophagitis; F17.210 Nicotine dependence, cigarettes, uncomplicated; Z79.899 Other long term (current) drug therapy
CPT/HCPCS: 72100; 72220; 96372; J1885

== ENCOUNTER 2024-01-12 13:25 | Inpatient (IN) | payer OTHER, MEDICAID ==
[2024-01-12] MEDS ORDERED: Rocuronium Bromide 10 MG/ML (10ML VIAL) ONE (13:39)
[2024-01-12] MEDS ORDERED: Etomidate 40 MG (20 mL) VIAL ONE (13:39)
[2024-01-12 13:46] LABS: Actual Bicarbonate (HCO3a) 19.7 mEq/L (22-28); Analyzer IN Cardio ER; Base Excess (BEa) -3.5 mEq/L (-2.0 to +3.0); CO2 Tension 30.7 mmHg (35.0-45.0); Calcium, Ionized (arterial) 1.12 mmol/L (1.12-1.30); Carboxyhemoglobin (COHb) 4.2 gm% (0.0-3.0); Hematocrit-ABG 43 % (42.0-52.0); Hemoglobin (Hb) 14.7 g/dL (14.0-18.0); O2 Tension (PaO2), arterial 389.1 mmHg (80.0-100.0); Potassium - ABG Lab 4.08 mmol/L (3.70-5.30); pH, Arterial 7.425 (7.35-7.45)
[2024-01-12 14:08] LABS: Bacteria/HPF None Seen HPF (None Seen); Bilirubin Negative (Negative); Blood, Urine Negative (Negative); CAUTI Indications for Culture Alt mental st,lethar; Clarity Clear (Clear); Glucose, Urine (Dipstick) Normal (Negative); Ketone, Urine Negative (Negative); Leukocyte Negative Leu/uL (Negative); Nitrite Negative (Negative); Protein, Urine (Dipstick) Negative (Neg-Trace); RBC/HPF 0-3 HPF (0-3); Specific Gravity, Urine 1.008 (1.002-1.036); Squamous Epithelial None Seen HPF (0-3); Urobilinogen Normal mg/dL (Less than 2); WBC/HPF 0-3 HPF (0-3)
[2024-01-12 14:14] LABS: Urine Culture Reflex No No
[2024-01-12] MEDS ORDERED: Fentanyl CADD 100 ML IV SCH ×2 (14:15→16:45)
[2024-01-12 14:16] LABS: Amphetamine Not Detected (NotDetected); Barbiturates Screen Not Detected (NotDetected); Benzodiazepine Screen Not Detected (NotDetected); Cocaine Metabolite Screen Detected (NotDetected); Methadone Not Detected (NotDetected); Methamphetamine Not Detected (NotDetected); Opiate Screen Not Detected (NotDetected); Oxycodone Screen Not Detected (NotDetected); Phencyclidine (PCP) Not Detected (NotDetected); THC/Cannabinoid Screen Not Detected (NotDetected); Tricyclic Screen Detected (NotDetected)
[2024-01-12] MEDS ORDERED: fentaNYL 50 mcg/mL 1 mL Vial ONE ×2 (14:25→14:39)
[2024-01-12 14:43] LABS: ALV-art Gradient -70.975 mmHg (0-20); Puncture Site Right Radial artery
[2024-01-12 15:23] LABS: #Basophils 0.04 10x3/uL (0.0-0.2); %Basophils 0.4 % (0.0-1.0); %Eosinophils 0.8 % (0.0-10.0); %Lymphocytes 24.2 % (21.0-51.0); %Neutrophils 66.8 % (42.0-75.0); Hemoglobin 15.8 g/dL (14.0-18.0); Mean Corpuscular HGB CONC 34.3 g/dL (32.0-36.0); Mean Corpuscular Hemoglobin 32.5 pg (27.0-31.0); Mean Corpuscular Volume 94.7 fL (78.0-98.0); Mean Platelet Volume 10.6 fL (7.4-10.4); Platelet Count 153 10x3/uL (130-400); RBC Distribution Width 13.1 % (11.5-14.5); Red Blood Cell (RBC) Count 4.86 mill/uL (4.70-6.10)
[2024-01-12 15:36] LABS: Acetaminophen Less than 10 mcg/mL (Less than 10); Alcohol Less than 10.0 mg/dL (Less than 10); Salicylate Less than 8.0 mg/dL (Less than 8.0)
[2024-01-12 16:03] LABS: ALT (SGPT) 22 U/L (8-55); AST (SGOT) 21 U/L (5-34); Albumin 3.5 g/dL (3.5-5.0); Alkaline Phosphatase 51 U/L (40-110); Anion Gap 14 mmol/L (10-20); BUN (Urea Nitrogen) 14 mg/dL (8.4-25.7); Bilirubin, Total 1.3 mg/dL (0.2-1.2); Calc. Creatinine Clearance 0 mL/min (70-130); Calcium 8.4 mg/dL (7.8-10.44); Carbon Dioxide 20 mmol/L (22-29); Chloride 113 mmol/L (98-107); Estimated GFR 105; Globulin 2.3 g/dL (2.4-3.5); Glucose 105 mg/dL (70-105); Potassium 4.1 mmol/L (3.5-5.1); Protein, Total 5.8 g/dL (6.0-8.3); Sodium 143 mmol/L (136-145)
[2024-01-12 16:12] LABS: Troponin I Less than 0.010 ng/mL (< 0.028)
[2024-01-12] MEDS ORDERED: Ondansetron PF 4 MG/2 ML Vial IVP PRN (16:37)
[2024-01-12] MEDS ORDERED: Senokot S 8.6-50 MG TAB PO PRN (16:37)
[2024-01-12] MEDS ORDERED: Bisacodyl 10 MG SUPP PR PRN (16:37)
[2024-01-12] MEDS ORDERED: Acetaminophen 650 MG Suppository PR PRN (16:37)
[2024-01-12] MEDS ORDERED: Ventilator Sedation Protocol 1 EACH FS SCH (16:41)
[2024-01-12] MEDS ORDERED: Morphine 2 MG/ML VIAL SLOW IVP PRN (16:45)
[2024-01-12] MEDS ORDERED: Propofol BOLUS 1,000 MG/100 ML VIAL IV PRN (16:45)
[2024-01-12] MEDS ORDERED: Lorazepam 2 MG/ML VIAL SLOW IVP PRN (16:45)
[2024-01-12] MEDS ORDERED: DISCONTINUE PREVIOUS NARCOTIC PAIN MEDICATIONS AND BENZODIAZEPINES FS SCH (16:45)
[2024-01-12] MEDS ORDERED: Fentanyl BOLUS 250 ML IVPB PRN (16:45)
[2024-01-12] MEDS: Propofol 1,000 MG/100 ML VIAL IV PRN (17:32)
[2024-01-12] MEDS: Lactated Ringer's 1,000 ML IV SCH (17:33)
[2024-01-12] MEDS: Famotidine/PF 20 mg/2ml Vial SLOW IVP SCH (21:44)
[2024-01-12] MEDS: Nicotine 14 MG PATCH TD SCH (23:43)
[2024-01-13] MEDS: Multivitamins, Adult 10 ML, Thiamine HCl 100 MG, Folic Acid 1 MG in Dextrose 5 %-0.45 %... IV SCH (01:22)
[2024-01-13] MEDS: Multivit, Adult Inj 10 ML VIAL IV SCH (01:22)
[2024-01-13 06:11] LABS: #Basophils Less than 0.03 10x3/uL (0.0-0.2); %Basophils 0.3 % (0.0-1.0); %Lymphocytes 24.1 % (21.0-51.0); %Monocytes 6.3 % (0.0-10.0); %Neutrophils 67.9 % (42.0-75.0); Hematocrit 37.7 % (42.0-52.0); Hemoglobin 12.8 g/dL (14.0-18.0); Mean Corpuscular Hemoglobin 32.4 pg (27.0-31.0); Mean Corpuscular Volume 95.4 fL (78.0-98.0); Mean Platelet Volume 9.8 fL (7.4-10.4); Platelet Count 91 10x3/uL (130-400); RBC Distribution Width 13.1 % (11.5-14.5); Red Blood Cell (RBC) Count 3.95 mill/uL (4.70-6.10)
[2024-01-13 06:22] LABS: ALT (SGPT) 21 U/L (8-55); AST (SGOT) 20 U/L (5-34); Albumin 3.1 g/dL (3.5-5.0); Alkaline Phosphatase 42 U/L (40-110); Anion Gap 10 mmol/L (10-20); BUN (Urea Nitrogen) 13 mg/dL (8.4-25.7); Bilirubin, Total 1.1 mg/dL (0.2-1.2); Calc. Creatinine Clearance 94 mL/min (70-130); Calcium 8.2 mg/dL (7.8-10.44); Carbon Dioxide 22 mmol/L (22-29); Chloride 112 mmol/L (98-107); Estimated GFR 107; Globulin 2.2 g/dL (2.4-3.5); Glucose 106 mg/dL (70-105); Potassium 4.1 mmol/L (3.5-5.1); Protein, Total 5.3 g/dL (6.0-8.3); Sodium 140 mmol/L (136-145)
[2024-01-13] MEDS ORDERED: Folic Acid 5 MG/ML MDV SC SCH (09:00)
[2024-01-14 06:13] VITALS: BMI 22.3
[2024-01-14 09:02] LABS: #Basophils Less than 0.03 10x3/uL (0.0-0.2); %Basophils 0.3 % (0.0-1.0); %Eosinophils 0.9 % (0.0-10.0); %Lymphocytes 16.9 % (21.0-51.0); %Monocytes 5.3 % (0.0-10.0); Hematocrit 38.2 % (42.0-52.0); Hemoglobin 12.6 g/dL (14.0-18.0); Mean Corpuscular Hemoglobin 32.6 pg (27.0-31.0); Mean Corpuscular Volume 98.7 fL (78.0-98.0); Mean Platelet Volume 10.2 fL (7.4-10.4); Platelet Count 103 10x3/uL (130-400); RBC Distribution Width 12.6 % (11.5-14.5); Red Blood Cell (RBC) Count 3.87 mill/uL (4.70-6.10)
[2024-01-14] MEDS: Atenolol 50 MG TAB PO SCH (09:25)
[2024-01-14] MEDS: NIFEdipine XL 60 MG ER.TAB PO SCH (09:25)
[2024-01-14] MEDS: Rosuvastatin 5 MG TAB PO SCH (09:25)
[2024-01-14] MEDS: Tamsulosin HCl 0.4 MG CAP PO SCH (09:25)
[2024-01-14 09:28] LABS: Anion Gap 13 mmol/L (10-20); BUN (Urea Nitrogen) 7 mg/dL (8.4-25.7); Calc. Creatinine Clearance 95 mL/min (70-130); Calcium 8.4 mg/dL (7.8-10.44); Carbon Dioxide 24 mmol/L (22-29); Chloride 108 mmol/L (98-107); Estimated GFR 107; Glucose 118 mg/dL (70-105); Potassium 3.6 mmol/L (3.5-5.1); Sodium 141 mmol/L (136-145)
[2024-01-14 09:46] LABS: Band 7 % (5-11); Eosinophils 3 % (0-10); Lymphocytes 19 % (21-51); Monocytes 4 % (0-10); Neutrophil 67 % (42-75); Platelet Adequacy Comment Platelets Decreased; Polychromasia SLIGHT = 2-3 cells HPF (0-2)
[2024-01-14 16:09] VITALS: BP 155/75; TEMP 98.5
== END 2024-01-14 16:03 | disposition home or self-care (01) | DRG 917 ==
LOC: SUATTDRO 13:25 → ERS 13:25 → CCU 16:38 → 2NO 01-13 15:58
PROVIDERS: ADMIT Internal Medicine; ATTEND Internal Medicine
PROC: 0T9B70Z Drainage of Bladder with Drainage Device, Via Natural or Artificial Opening (ICD-10-PCS; principal; 2024-01-12)
PROC: 0BH17EZ Insertion of Endotracheal Airway into Trachea, Via Natural or Artificial Opening (ICD-10-PCS; 2024-01-12)
PROC: 4A033R1 Measurement of Arterial Saturation, Peripheral, Percutaneous Approach (ICD-10-PCS; 2024-01-12)
PROC: 5A1935Z Respiratory Ventilation, Less than 24 Consecutive Hours (ICD-10-PCS; 2024-01-12)
DX: T48.1X1A Poisoning by skeletal muscle relaxants [neuromuscular blocking agents], accidental (unintentional), initial encounter (principal); G93.41 Metabolic encephalopathy; J96.00 Acute respiratory failure, unspecified whether with hypoxia or hypercapnia; I10 Essential (primary) hypertension; E78.5 Hyperlipidemia, unspecified; F41.9 Anxiety disorder, unspecified; F32.A Depression, unspecified; Z79.899 Other long term (current) drug therapy; F17.210 Nicotine dependence, cigarettes, uncomplicated; K21.9 Gastro-esophageal reflux disease without esophagitis
CPT/HCPCS: 31500; 36415; 36600; 51702; 70450; 71045; 80048; 80053; 80306; 80307; 81001; 82805; 83605; 83690; 84484; 85025; 93005; 93010; 94002; 94003; J2704; J3010; J3411; J3490; J7042; J7120